=== PATIENT | female | born 1995 | race Caucasian/White ===

== ENCOUNTER 2018-12-18 08:24 | Inpatient (IN) ==
[2018-12-18] MEDS ORDERED: Ondansetron 4 MG/2 ML VIAL IVP ONE (08:37)
[2018-12-18] MEDS ORDERED: *HR* FentaNYL (PF) 100 MCG/2 ML VIAL IVP ONE (08:37)
--- NOTE | 2018-12-18 08:43 | Emergency Department Note ---
Disposition Clinical Impression: STEMI (ST elevation myocardial infarction) Qualifiers: Involved coronary artery: right coronary artery Qualified Code(s): I21.11 - ST elevation (STEMI) myocardial infarction involving right coronary artery Disposition: Admitted As Inpatient Condition: Critical Time of Disposition: 09:21 General Adult HPI - General Chief complaint: ED Shortness of Breath/Dyspnea Stated complaint: CP/MAKAYLA/DKA? Time Seen by Provider: 12/18/18 08:28 Source: patient Mode of arrival: ambulatory Limitations: no limitations Nursing Notes Reviewed: Yes Vital Signs Reviewed: Yes - History of Present Illness HPI Narrative: Ill-appearing 23-year-old female with a history of diabetes presents for evaluation of severe nausea, vomiting, abdominal cramping, and retrosternal chest pain along with shortness of breath. Symptoms began this morning upon her awakening. She states a history of DKA in the past and states that she she feels as if she might be in DKA again. She states her blood glucose levels have been reading as "high" on her home glucometer. She does state that she had recently been on oral steroids for bronchitis. Up until this morning, her blood glucose levels were relatively well-controlled on her current regimen. She denies any fever or chills. She describes diffuse abdominal cramping. The substernal chest pain is worse with inspiration. She denies any porsche hemoptysis. She denies any history of PEs or DVTs. She denies any pain or swelling of the lower extremities. She denies any recent surgical procedures or prolonged periods of immobilization. She denies any urinary symptoms. She st ates that she has had several episodes of diarrhea for the past couple of days. She describes an ongoing nonproductive cough. Onset (ago): hour(s) Location: chest, abdomen Quality: aching Consistency: Worsening Improves with: nothing Associated symptoms: Reports: cough, nausea/vomiting. Denies: fever/chills - Related Data Home Medications Medication Instructions Recorded Confirmed Dulaglutide [Trulicity] 0.75 mg SQ WE 12/18/18 12/18/18 GlipiZIDE XL (24 HR) [Glucotrol XL] 10 mg PO DAILY 12/18/18 12/18/18 Lisinopril 2.5 mg PO DAILY 12/18/18 12/18/18 Metformin HCl 1,000 mg PO BID 12/18/18 12/18/18 Pregabalin [Lyrica] 150 mg PO TID 12/18/18 12/18/18 Sertraline [Zoloft] 50 mg PO DAILY 12/18/18 12/18/18 Allergies Allergy/AdvReac Type Severity Reaction Status Date / Time No Known Allergies Allergy Verified 12/18/18 16:21 All systems ED: reviewed and negative except as stated. Review of Systems: As Per HPI Constitutional: Denies: fever, chills, weakness, weight change Eyes: Denies: eye pain, eye discharge, vision change ENT ED: Denies: ear pain, throat pain, dental pain, hearing loss, epistaxis, congestion, dysphagia Cardiovascular: Reports: as per HPI, chest pain. Denies: palpitations, dyspnea on exertion, edema, syncope Respiratory: Reports: as per HPI, cough, dyspnea. Denies: wheezes, hemoptysis, stridor Gastrointestinal: Reports: as per HPI, abdominal pain, nausea, vomiting, diarrhea. Denies: constipation, hematemesis, melena, hematochezia Genitourinary: Denies: dysuria, frequency, hematuria, discharge Musculoskeletal: Denies: back pain, neck pain, arthralgia, myalgia Integumentary: Denies: rash, abrasion, lesions Neurological: Denies: headache, weakness, numbness, paresthesias, confusion, abnormal gait, vertigo Psychiatric: Denies: anxiety, depression, suicidal thoughts, homicidal thoughts, auditory hallucinations, visual hallucinations Endocrine: Denies: fatigue Hematological/Lymphatic: Denies: easy bleeding, easy bruising Allergic/Immunologic: Denies: facial swelling, urticaria Past Medical History - Past Medical History Attestation: Yes The following information was validated with the patient. Source: patient, nursing notes reviewed Medical history: Reports: diabetes, fibromyalgia, hepatitis, other Surgical history: Reports: , other Psychiatric history: Reports: anxiety, bipolar, depression HANDMADE TILE ARTIST history: Reports: no HANDMADE TILE ARTIST history - Social History Smoking Status: Never smoker Smokeless Tobacco Status: No Alcohol use: Reports: none Drug use: Reports: none Physical Exam - General Limitations: no limitations General appearance: alert, other (Ill-appearing) - Head Head exam: atraumatic, normocephalic, normal inspection - Eye Eye exam: Present: normal appearance, PERRL, EOMI. Absent: nystagmus - ENT ENT exam: mucous membranes dry - Neck Neck exam: Present: normal inspection, full ROM - Chest Chest inspection: Present: normal inspection, symmetric chest wall rise - Respiratory Respiratory exam: Present: normal lung sounds bilaterally. Absent: respiratory distress, wheezes, stridor, accessory muscle use, prolonged expiratory phase - Cardiovascular Cardiovascular exam: Present: regular rate, normal rhythm, normal heart sounds - Abdominal Exam Abdominal exam: Present: soft, tenderness (Diffuse), normal bowel sounds. Absent: distention, guarding, rebound, rigidity Abdominal tenderness: Present: diffuse, moderate - Extremities Exam Extremities exam: Present: normal inspection, full ROM - Neurological Exam Neurological exam: Present: alert, oriented X3 - Psychiatric Psychiatric exam: Present: normal affect, normal mood - Skin Skin exam: Present: warm, dry, intact, normal color. Absent: rash, cyanosis, diaphoresis, pallor, mottled Course Course Narrative: 0846: EKG obtained and shows ST elevations in leads 2, 3, aVF, V4, V5, and 6. ST depressions noted in leads 1, aVL, and V2. EKG reviewed by Dr. Elias. STEMI alert paged at this time. Aspirin given. Awaiting further input from cardiology for additional medications. 0903: Advanced practice provider DENNY Leyva from cardiology at bedside currently. 0906: Autumn recommends administering 180 mg of Brilinta. The patient has received a 4000 unit bolus of heparin, IV push. Aspirin given. Autumn states that Dr. Fofana, agricultural commodities inspector is currently performing a heart catheterization however she will send him to the emergency department for bedside evaluation as soon as possible. Dr. Elias recommends one sublingual nitroglycerin. 0918: EKG repeated. ST elevations in 2, 3, aVF, V3, V4, V5, V6 persists. 0920: earth science laboratory technician personnel at bedside. 0923: Patient to blood and plasma laboratory assistant with blood and plasma laboratory assistant nursing staff. Vital Signs Temperature 97.7 F 12/18/18 08:30 Pulse Rate 127 12/18/18 08:30 Respiratory Rate 18 12/18/18 08:30 Blood Pressure 152/116 12/18/18 08:30 O2 Sat by Pulse Oximetry 97 12/18/18 08:30 Temperature 97.6 F 12/18/18 15:15 Pulse Rate 112 12/18/18 17:00 Respiratory Rate 14 12/18/18 17:00 Blood Pressure 151/101 12/18/18 17:00 O2 Sat by Pulse Oximetry 95 12/18/18 17:00 Oxygen Delivery Oxygen Delivery Nasal Cannula Medical Decision Making - Medical Records Medical records reviewed: Yes I reviewed the patient's medical records. - Lab Data Lab results reviewed: Yes I reviewed the patient's lab results. Result diagrams: 12/18/18 08:49 12/18/18 15:12 Lab Results 12/18/18 12/18/18 12/18/18 Range/Units 08:33 08:34 08:49 WBC 17.7 H D (4.3-11.1) K/mcL RBC 4.94 (3.82-4.97) M/mcL Hgb 14.8 (11.5-15.4) g/dL Hct 42.1 (35.3-44.9) % MCV 85.2 (83.0-100.0) fL MCH 30.0 (28.0-33.3) pg MCHC 35.2 (31.6-35.5) g/dL RDW 12.7 (11.5-14.5) % Plt Count 260 (140-400) K/mcL MPV 10.0 (9.4-12.4) fL Immature Gran % 0.6 (0-4) % Seg Neutrophils % 76.7 % Lymphocytes % 18.2 % Monocytes % 3.5 % Eosinophils % 0.8 % Basophils % 0.2 % Neutrophils # 13.6 H (1.6-8.9) K/mcL Lymphocytes # 3.2 (0.6-4.6) K/mcL Monocytes # 0.6 (0.0-1.3) K/mcL Eosinophils # 0.1 (0.0-0.6) K/mcL Basophils # 0.0 (0.0-0.2) K/mcL D-Dimer (0-500) ng/mLFEU VBG pH (7.32-7.42) pH Units VBG pCO2 (41-51) mmHg VBG pO2 (25-50) mmHg VBG HCO3 (21-27) mEq/L Sodium (136-145) mEq/L Potassium (3.5-5.1) mEq/L Chloride (98-107) mEq/L Carbon Dioxide (23-29) mEq/L BUN (6-20) mg/dL Creatinine (0.60-1.20) mg/dL Est GFR ( Amer) (> 60) Est GFR (Non-Af Amer) (> 60) BUN/Creatinine Ratio (6-26) Glucose (70-105) mg/dL POC Glucose 492 H* 512 H* (70-99) mg/dL Calculated Osmolality (280-300) Lactic Acid (0.5-2.2) mmol/L Calcium (8.6-10.3) mg/dL Phosphorus (2.7-4.5) mg/dL Magnesium (1.6-2.6) mg/dL Total Bilirubin (0.3-1.0) mg/dL AST (13-39) Units/L ALT (7-52) Units/L Alkaline Phosphatase (34-104) Units/L Troponin I (< 0.04) ng/mL Serum Total Protein (6.4-8.9) g/dL Albumin (3.5-5.7) g/dL Globulin (2.4-3.5) g/dL Albumin/Globulin Ratio (1.1-2.2) Beta-Hydroxybutyric Acd (0.02-0.27) mmol/L Serum , Qual (Negative) 12/18/18 12/18/18 12/18/18 Range/Units 08:49 08:49 08:49 WBC (4.3-11.1) K/mcL RBC (3.82-4.97) M/mcL Hgb (11.5-15.4) g/dL Hct (35.3-44.9) % MCV (83.0-100.0) fL MCH (28.0-33.3) pg MCHC (31.6-35.5) g/dL RDW (11.5-14.5) % Plt Count (140-400) K/mcL MPV (9.4-12.4) fL Immature Gran % (0-4) % Seg Neutrophils % % Lymphocytes % % Monocytes % % Eosinophils % % Basophils % % Neutrophils # (1.6-8.9) K/mcL Lymphocytes # (0.6-4.6) K/mcL Monocytes # (0.0-1.3) K/mcL Eosinophils # (0.0-0.6) K/mcL Basophils # (0.0-0.2) K/mcL D-Dimer (0-500) ng/mLFEU VBG pH (7.32-7.42) pH Units VBG pCO2 (41-51) mmHg VBG pO2 (25-50) mmHg VBG HCO3 (21-27) mEq/L Sodium 134 L (136-145) mEq/L Potassium 3.3 L (3.5-5.1) mEq/L Chloride 99 (98-107) mEq/L Carbon Dioxide 19 L (23-29) mEq/L BUN 22 H (6-20) mg/dL Creatinine 0.75 (0.60-1.20) mg/dL Est GFR ( Amer) > 60 (> 60) Est GFR (Non-Af Amer) > 60 (> 60) BUN/Creatinine Ratio 29 H (6-26) Glucose 573 H* (70-105) mg/dL POC Glucose (70-99) mg/dL Calculated Osmolality 308 H (280-300) Lactic Acid 3.7 H (0.5-2.2) mmol/L Calcium 10.2 (8.6-10.3) mg/dL Phosphorus 2.2 L (2.7-4.5) mg/dL Magnesium 1.5 L (1.6-2.6) mg/dL Total Bilirubin 0.6 (0.3-1.0) mg/dL AST 34 (13-39) Units/L ALT 13 (7-52) Units/L Alkaline Phosphatase 77 (34-104) Units/L Troponin I 1.91 H* (< 0.04) ng/mL Serum Total Protein 7.2 (6.4-8.9) g/dL Albumin 4.3 (3.5-5.7) g/dL Globulin 2.9 (2.4-3.5) g/dL Albumin/Globulin Ratio 1.5 (1.1-2.2) Beta-Hydroxybutyric Acd 1.71 H (0.02-0.27) mmol/L Serum , Qual (Negative) 12/18/18 12/18/18 12/18/18 Range/Units 08:49 08:49 09:07 WBC (4.3-11.1) K/mcL RBC (3.82-4.97) M/mcL Hgb (11.5-15.4) g/dL Hct (35.3-44.9) % MCV (83.0-100.0) fL MCH (28.0-33.3) pg MCHC (31.6-35.5) g/dL RDW (11.5-14.5) % Plt Count (140-400) K/mcL MPV (9.4-12.4) fL Immature Gran % (0-4) % Seg Neutrophils % % Lymphocytes % % Monocytes % % Eosinophils % % Basophils % % Neutrophils # (1.6-8.9) K/mcL Lymphocytes # (0.6-4.6) K/mcL Monocytes # (0.0-1.3) K/mcL Eosinophils # (0.0-0.6) K/mcL Basophils # (0.0-0.2) K/mcL D-Dimer 478 (0-500) ng/mLFEU VBG pH 7.37 (7.32-7.42) pH Units VBG pCO2 34 L (41-51) mmHg VBG pO2 74 H (25-50) mmHg VBG HCO3 20 L (21-27) mEq/L Sodium (136-145) mEq/L Potassium (3.5-5.1) mEq/L Chloride (98-107) mEq/L Carbon Dioxide (23-29) mEq/L BUN (6-20) mg/dL Creatinine (0.60-1.20) mg/dL Est GFR ( Amer) (> 60) Est GFR (Non-Af Amer) (> 60) BUN/Creatinine Ratio (6-26) Glucose (70-105) mg/dL POC Glucose (70-99) mg/dL Calculated Osmolality (280-300) Lactic Acid (0.5-2.2) mmol/L Calcium (8.6-10.3) mg/dL Phosphorus (2.7-4.5) mg/dL Magnesium (1.6-2.6) mg/dL Total Bilirubin (0.3-1.0) mg/dL AST (13-39) Units/L ALT (7-52) Units/L Alkaline Phosphatase (34-104) Units/L Troponin I (< 0.04) ng/mL Serum Total Protein (6.4-8.9) g/dL Albumin (3.5-5.7) g/dL Globulin (2.4-3.5) g/dL Albumin/Globulin Ratio (1.1-2.2) Beta-Hydroxybutyric Acd (0.02-0.27) mmol/L Serum , Qual Negative (Negative) - Radiology Data Radiology results reviewed: Yes I reviewed the patient's radiology results. - EKG Data EKG #1 EKG attestation: Yes I reviewed and interpreted this EKG. Critical Care Time Critical Care Time: Yes Total Critical Care Time: 30 Attestation: 30 minutes critical care time excluding any separately billable procedures.
[2018-12-18] MEDS ORDERED: *HR* Heparin 5,000 UNIT/ML VIAL ONE (08:52)
[2018-12-18] MEDS ORDERED: Aspirin 81 MG TAB.CHEW ONE (08:52)
[2018-12-18] MEDS ORDERED: *HR* Morphine 2 MG/ML SYRINGE ONE (08:52)
[2018-12-18] MEDS ORDERED: 0.9 % Sodium Chloride 1,000 ML ONE ×2 (08:52→09:50)
[2018-12-18] MEDS ORDERED: *HR* Ticagrelor 90 MG TABLET ONE (08:52)
--- NOTE | 2018-12-18 08:58 | Emergency Department Note ---
Disposition Clinical Impression: STEMI (ST elevation myocardial infarction) Qualifiers: Involved coronary artery: unspecified coronary artery Qualified Code(s): I21.3 - ST elevation (STEMI) myocardial infarction of unspecified site Disposition: Admitted As Inpatient Condition: Critical Referrals: NONE,PCP [Primary Care Provider] - Forms: ED Satisfaction Letter General Adult HPI - General Chief complaint: ED Shortness of Breath/Dyspnea Stated complaint: CP/MAKAYLA/DKA? Time Seen by Provider: 12/18/18 08:28 Source: patient Mode of arrival: ambulatory Limitations: no limitations Nursing Notes Reviewed: Yes Vital Signs Reviewed: Yes - History of Present Illness Location: chest, abdomen Quality: aching Improves with: nothing Associated symptoms: Reports: cough, nausea/vomiting. Denies: fever/chills - Related Data Home Medications Medication Instructions Recorded Confirmed Basaglar Smithikpen U-100 02/28/18 Gabapentin 02/28/18 HumaLOG 02/28/18 Naproxen 02/28/18 Pioglitazone [Actos] 30 mg PO 02/28/18 metFORMIN [Glucophage] 500 mg PO 02/28/18 Previous Rx's Medication Instructions Recorded Promethazine [Phenergan] 12.5 mg PO Q8HR PRN #10 tablet 02/28/18 Dicyclomine [Bentyl] 10 mg PO TID PRN #12 capsule 03/24/18 Ondansetron HCl [Zofran] 4 mg PO Q6HR PRN #12 tab 03/24/18 Morphine Immed Rel [Morphine 15 mg PO Q4HR PRN 3 Days #15 tab 04/09/18 Sulfate] Ondansetron ODT [Zofran ODT] 4 mg SL Q8HR #20 tab.rapdis 08/08/18 Allergies Allergy/AdvReac Type Severity Reaction Status Date / Time No Known Allergies Allergy Verified 04/05/17 15:40 Constitutional: Denies: fever, chills, weakness, weight change Eyes: Denies: eye pain, eye discharge, vision change ENT ED: Denies: ear pain, throat pain, dental pain, hearing loss, epistaxis, congestion, dysphagia Cardiovascular: Reports: as per HPI, chest pain. Denies: palpitations, dyspnea on exertion, edema, syncope Respiratory: Reports: as per HPI, cough, dyspnea. Denies: wheezes, hemoptysis, stridor Gastrointestinal: Reports: as per HPI, abdominal pain, nausea, vomiting, diarrhea. Denies: constipation, hematemesis, melena, hematochezia Genitourinary: Denies: dysuria, frequency, hematuria, discharge Musculoskeletal: Denies: back pain, neck pain, arthralgia, myalgia Integumentary: Denies: rash, abrasion, lesions Neurological: Denies: headache, weakness, numbness, paresthesias, confusion, abnormal gait, vertigo Psychiatric: Denies: anxiety, depression, suicidal thoughts, homicidal thoughts, auditory hallucinations, visual hallucinations Endocrine: Denies: fatigue Hematological/Lymphatic: Denies: easy bleeding, easy bruising Allergic/Immunologic: Denies: facial swelling, urticaria Past Medical History - Past Medical History Medical history: Reports: diabetes, fibromyalgia, hepatitis, other Surgical history: Reports: , other Psychiatric history: Reports: anxiety, bipolar, depression PURCHASING BUYER history: Reports: no PURCHASING BUYER history - Social History Smoking Status: Never smoker Smokeless Tobacco Status: No Alcohol use: Reports: none Drug use: Reports: none Physical Exam - General Limitations: no limitations General appearance: alert, other (Ill-appearing) Course Vital Signs Temperature 97.7 F 12/18/18 08:30 Pulse Rate 127 12/18/18 08:30 Respiratory Rate 18 12/18/18 08:30 Blood Pressure 152/116 12/18/18 08:30 O2 Sat by Pulse Oximetry 97 12/18/18 08:30 Temperature 97.7 F 12/18/18 08:30 Pulse Rate 110 12/18/18 09:15 Respiratory Rate 16 12/18/18 09:15 Blood Pressure 136/95 12/18/18 09:15 O2 Sat by Pulse Oximetry 99 12/18/18 09:15 Oxygen Delivery Oxygen Delivery Nasal Cannula Medical Decision Making - [facility] Narrative Medical decision making narrative: 0906 hrs. cardiology is in the emergency department evaluating the patient. We have held on her heparin until we could see her chest x-ray to make sure she did not have a wide mediastinum. She does not. We will start the heparin nitroglycerin and the determine if cardiology wants polenta her other m edications. Patient over to the Director Of Academic Support then to ICU for admission. Chest X-Ray 12/18/18 08:35 IMPRESSION: No acute findings in the chest. D/ / Martin Perales MD / Martin Perales MD Interpreting Provider: Martin Perales MD 0915 hours cardiology wanted to start her on blunted. She did have a run of what looks like V. tach was about 10-15 beats. No more that. Her pain is a little improved but still there. They are to take her to the Director Of Academic Support as soon as the cardiologists finished with the current catheter on. Patient's in agreement with plan as is her family. 0925 hrs.: Due to the second EKG and the patient still shows STEMI. She is having less pain now we did do one nitroglycerin on her still waiting on Director Of Academic Support. And then she will go for that. 0930 hrs.: Patient's in Director Of Academic Support at this time. We will also touch base with medicine since she does have DKA and will be admitted most likely to medicine with cardiology consult cardiology with medicine consult. Impression #1 is DKA with history of same. #2 is inferior wall STEMI. - Lab Data Result diagrams: 12/18/18 08:49 12/18/18 08:49 Lab Results 12/18/18 12/18/18 12/18/18 Range/Units 08:49 08:49 08:49 WBC 17.7 H D (4.3-11.1) K/mcL RBC 4.94 (3.82-4.97) M/mcL Hgb 14.8 (11.5-15.4) g/dL Hct 42.1 (35.3-44.9) % MCV 85.2 (83.0-100.0) fL MCH 30.0 (28.0-33.3) pg MCHC 35.2 (31.6-35.5) g/dL RDW 12.7 (11.5-14.5) % Plt Count 260 (140-400) K/mcL MPV 10.0 (9.4-12.4) fL Immature Gran % 0.6 (0-4) % Seg Neutrophils % 76.7 % Lymphocytes % 18.2 % Monocytes % 3.5 % Eosinophils % 0.8 % Basophils % 0.2 % Neutrophils # 13.6 H (1.6-8.9) K/mcL Lymphocytes # 3.2 (0.6-4.6) K/mcL Monocytes # 0.6 (0.0-1.3) K/mcL Eosinophils # 0.1 (0.0-0.6) K/mcL Basophils # 0.0 (0.0-0.2) K/mcL D-Dimer (0-500) ng/mLFEU VBG pH (7.32-7.42) pH Units VBG pCO2 (41-51) mmHg VBG pO2 (25-50) mmHg VBG HCO3 (21-27) mEq/L Sodium 134 L (136-145) mEq/L Potassium 3.3 L (3.5-5.1) mEq/L Chloride 99 (98-107) mEq/L Carbon Dioxide 19 L (23-29) mEq/L BUN 22 H (6-20) mg/dL Creatinine 0.75 (0.60-1.20) mg/dL Est GFR ( Amer) > 60 (> 60) Est GFR (Non-Af Amer) > 60 (> 60) BUN/Creatinine Ratio 29 H (6-26) Glucose 573 H* (70-105) mg/dL Calculated Osmolality 308 H (280-300) Lactic Acid (0.5-2.2) mmol/L Calcium 10.2 (8.6-10.3) mg/dL Phosphorus 2.2 L (2.7-4.5) mg/dL Magnesium 1.5 L (1.6-2.6) mg/dL Total Bilirubin 0.6 (0.3-1.0) mg/dL AST 34 (13-39) Units/L ALT 13 (7-52) Units/L Alkaline Phosphatase 77 (34-104) Units/L Troponin I 1.91 H* (< 0.04) ng/mL Serum Total Protein 7.2 (6.4-8.9) g/dL Albumin 4.3 (3.5-5.7) g/dL Globulin 2.9 (2.4-3.5) g/dL Albumin/Globulin Ratio 1.5 (1.1-2.2) Beta-Hydroxybutyric Acd 1.71 H (0.02-0.27) mmol/L Serum , Qual (Negative) 0412/18/18 12/18/18 Range/Units 08:49 08:49 08:49 WBC (4.3-11.1) K/mcL RBC (3.82-4.97) M/mcL Hgb (11.5-15.4) g/dL Hct (35.3-44.9) % MCV (83.0-100.0) fL MCH (28.0-33.3) pg MCHC (31.6-35.5) g/dL RDW (11.5-14.5) % Plt Count (140-400) K/mcL MPV (9.4-12.4) fL Immature Gran % (0-4) % Seg Neutrophils % % Lymphocytes % % Monocytes % % Eosinophils % % Basophils % % Neutrophils # (1.6-8.9) K/mcL Lymphocytes # (0.6-4.6) K/mcL Monocytes # (0.0-1.3) K/mcL Eosinophils # (0.0-0.6) K/mcL Basophils # (0.0-0.2) K/mcL D-Dimer 478 (0-500) ng/mLFEU VBG pH (7.32-7.42) pH Units VBG pCO2 (41-51) mmHg VBG pO2 (25-50) mmHg VBG HCO3 (21-27) mEq/L Sodium (136-145) mEq/L Potassium (3.5-5.1) mEq/L Chloride (98-107) mEq/L Carbon Dioxide (23-29) mEq/L BUN (6-20) mg/dL Creatinine (0.60-1.20) mg/dL Est GFR ( Amer) (> 60) Est GFR (Non-Af Amer) (> 60) BUN/Creatinine Ratio (6-26) Glucose (70-105) mg/dL Calculated Osmolality (280-300) Lactic Acid 3.7 H (0.5-2.2) mmol/L Calcium (8.6-10.3) mg/dL Phosphorus (2.7-4.5) mg/dL Magnesium (1.6-2.6) mg/dL Total Bilirubin (0.3-1.0) mg/dL AST (13-39) Units/L ALT (7-52) Units/L Alkaline Phosphatase (34-104) Units/L Troponin I (< 0.04) ng/mL Serum Total Protein (6.4-8.9) g/dL Albumin (3.5-5.7) g/dL Globulin (2.4-3.5) g/dL Albumin/Globulin Ratio (1.1-2.2) Beta-Hydroxybutyric Acd (0.02-0.27) mmol/L Serum , Qual Negative (Negative) 12/18/18 Range/Units 09:07 WBC (4.3-11.1) K/mcL RBC (3.82-4.97) M/mcL Hgb (11.5-15.4) g/dL Hct (35.3-44.9) % MCV (83.0-100.0) fL MCH (28.0-33.3) pg MCHC (31.6-35.5) g/dL RDW (11.5-14.5) % Plt Count (140-400) K/mcL MPV (9.4-12.4) fL Immature Gran % (0-4) % Seg Neutrophils % % Lymphocytes % % Monocytes % % Eosinophils % % Basophils % % Neutrophils # (1.6-8.9) K/mcL Lymphocytes # (0.6-4.6) K/mcL Monocytes # (0.0-1.3) K/mcL Eosinophils # (0.0-0.6) K/mcL Basophils # (0.0-0.2) K/mcL D-Dimer (0-500) ng/mLFEU VBG pH 7.37 (7.32-7.42) pH Units VBG pCO2 34 L (41-51) mmHg VBG pO2 74 H (25-50) mmHg VBG HCO3 20 L (21-27) mEq/L Sodium (136-145) mEq/L Potassium (3.5-5.1) mEq/L Chloride (98-107) mEq/L Carbon Dioxide (23-29) mEq/L BUN (6-20) mg/dL Creatinine (0.60-1.20) mg/dL Est GFR ( Amer) (> 60) Est GFR (Non-Af Amer) (> 60) BUN/Creatinine Ratio (6-26) Glucose (70-105) mg/dL Calculated Osmolality (280-300) Lactic Acid (0.5-2.2) mmol/L Calcium (8.6-10.3) mg/dL Phosphorus (2.7-4.5) mg/dL Magnesium (1.6-2.6) mg/dL Total Bilirubin (0.3-1.0) mg/dL AST (13-39) Units/L ALT (7-52) Units/L Alkaline Phosphatase (34-104) Units/L Troponin I (< 0.04) ng/mL Serum Total Protein (6.4-8.9) g/dL Albumin (3.5-5.7) g/dL Globulin (2.4-3.5) g/dL Albumin/Globulin Ratio (1.1-2.2) Beta-Hydroxybutyric Acd (0.02-0.27) mmol/L Serum , Qual (Negative) Critical Care Time Critical Care Time: Yes Total Critical Care Time: 30 Attestation: Excluding any separately billable procedures. Attestation Statement - Attestation Attestation: This documentation is done with the assistance of Dragon dictation. Despite efforts made to ensure accuracy, there may be inaccuracies in mainframe consultant or spelling and typographical errors. For this encounter, I have reviewed the DRUG ABUSE SOCIAL WORKER or PA documentation, treatment plan, and medical decision making; and I have had face to face time with this patient. Patient seen and evaluated by Salazar Peña and myself, I agree with his evaluation and management plan, patient has a history of diabetes came in with elevated blood sugars been also having chest pain that started sometime she says this mo rning she thinks maybe around 6 AM but then her story changes. Said sharp pain and nausea she was given some for nausea not better an EKG which shows an inferior STEMI. Had no cardiac history in the past her mom [id number] with her and she is not aware of anyone else having heart disease a young age. No history of PE. She was called as a STEMI alert. IVs placed and a give her some for pain and also started on heparin and then we will see what cardiology wants us for his other meds.
[2018-12-18 09:06] LABS: Basophils % 0.2 %; Eosinophils % 0.8 %; Hematocrit 42.1 % (35.3-44.9); Hemoglobin 14.8 g/dL (11.5-15.4); Immature Granulocytes % 0.6 % (0-4); Lymphocytes # 3.2 K/mcL (0.6-4.6); Lymphocytes % 18.2 %; Mean Corpuscular HGB Conc 35.2 g/dL (31.6-35.5); Mean Corpuscular Volume 85.2 fL (83.0-100.0); Monocytes # 0.6 K/mcL (0.0-1.3); Monocytes % 3.5 %; Neutrophils # 13.6 K/mcL (1.6-8.9); Platelet Count 260 K/mcL (140-400); Red Blood Count 4.94 M/mcL (3.82-4.97); Red Cell Distribution Width 12.7 % (11.5-14.5); Segmented Neutrophils % 76.7 %
[2018-12-18] MEDS: Aspirin 81 MG TAB.CHEW PO ONE ×2 (09:09→12:28)
[2018-12-18] MEDS: 0.9 % Sodium Chloride 1,000 ML IVC SCH ×4 (09:09→19:15)
[2018-12-18 09:10] LABS: VBG HCO3 20 mEq/L (21-27); VBG PCO2 34 mmHg (41-51); VBG PH 7.37 pH Units (7.32-7.42); VBG PO2 74 mmHg (25-50)
[2018-12-18] MEDS: *HR* Ticagrelor 90 MG TABLET PO ONE ×2 (09:10→12:29)
[2018-12-18] MEDS: *HR* Morphine 2 MG/ML SYRINGE IVP ONE ×2 (09:10→12:27)
[2018-12-18] MEDS: *HR* Heparin 5,000 UNIT/ML VIAL IVP ONE ×2 (09:11→12:27)
[2018-12-18 09:13] LABS: Eosinophils # 0.1 K/mcL (0.0-0.6)
[2018-12-18] MEDS ORDERED: Nitroglycerin 0.4 MG TAB.SUBL SL ONE (09:18)
[2018-12-18 09:28] LABS: Alanine Aminotransferase 13 Units/L (7-52); Albumin 4.3 g/dL (3.5-5.7); Albumin/Globulin Ratio 1.5 (1.1-2.2); Alkaline Phosphatase 77 Units/L (34-104); Aspartate Amino Transferase 34 Units/L (13-39); BUN/Creatinine Ratio 29 (6-26); Bilirubin,Total 0.6 mg/dL (0.3-1.0); Blood Urea Nitrogen 22 mg/dL (6-20); Calcium 10.2 mg/dL (8.6-10.3); Carbon Dioxide 19 mEq/L (23-29); Chloride 99 mEq/L (98-107); Globulin 2.9 g/dL (2.4-3.5); Magnesium 1.5 mg/dL (1.6-2.6); Osmolality,Calculated 308 (280-300); Phosphorous 2.2 mg/dL (2.7-4.5); Potassium 3.3 mEq/L (3.5-5.1); Sodium 134 mEq/L (136-145); Total Protein 7.2 g/dL (6.4-8.9); Troponin I 1.91 ng/mL (< 0.04); eGFR For Non-African Americans > 60 (> 60)
[2018-12-18] MEDS ORDERED: *HR* FentaNYL (PF) 100 MCG/2 ML VIAL ONE (09:30)
[2018-12-18] MEDS ORDERED: *HR* Midazolam HCl 2 MG/2 ML VIAL ONE (09:30)
[2018-12-18 09:31] LABS: Glucose 573 mg/dL (70-105)
[2018-12-18] MEDS ORDERED: *HR* Morphine 10 MG/ML VIAL ONE (09:31)
[2018-12-18] MEDS ORDERED: ISOVUE-370 200 ML INFUS..BTL ONE (09:32)
[2018-12-18] MEDS ORDERED: Heparin 1,000 UNITS/500 mL 500 ML ONE (09:32)
[2018-12-18] MEDS ORDERED: *HR* Amiodarone 150 MG/3 ML VIAL IVPB ONE (09:43)
[2018-12-18] MEDS ORDERED: *HR* Atropine Sulfate 1 MG/10 ML SYRINGE ONE ×2 (09:43→12:40)
[2018-12-18] MEDS ORDERED: Amiodarone Premix 360 MG/200 ML BAG IVC ONE ×2 (09:44→10:20)
[2018-12-18] MEDS ORDERED: Tirofiban 12.5 MG/250ML 12.5 MG/250 ML BAG ONE (09:46)
--- NOTE | 2018-12-18 10:27 | Cardiology Consult Note ---
<Autumn Peguero - Last Filed: 12/18/18 10:22> Date of Encounter: 12/18/18 Time of Encounter: 09:00 Assessment and Plan (1) STEMI (ST elevation myocardial infarction) Current Visit: Yes Status: Acute Per cardiology: -Acute inferior STEMI noted on ECG. -Presented with chest pain at rest, current 10/10 chest pain. -Denies IV drug, or cocaine abuse. Admits to marijuana use. -Serum negative. -Plan for emergent C. Qualifiers: Involved coronary artery: right coronary artery Qualified Code(s): I21.11 - ST elevation (STEMI) myocardial infarction involving right coronary artery (2) DM type 1 (diabetes mellitus, type 1) Current Visit: Yes Status: Chronic Per cardiology: -Known DM type I. -Blood sugars elevated in the 500s on admission. -WIll consult hospitalist for assistance with diabetes management. Qualifiers: Diabetes mellitus complication status: with unspecified complications Qualified Code(s): E10.8 - Type 1 diabetes mellitus with unspecified complications Discussion w patient/family: The assessment and plan as outlined above was discussed with the patient who expressed understanding and agreement. All questions were answered. Thank you for involving us in the care of your patient. Please call with any questions. Discussed and reviewed with . History of Present Illness Consult date: 12/18/18 Requesting physician: Salazar Peña Consult reason: STEMI Chief complaint: Chest pain History of present illness: Ms. Meyers is a 23 year old female with a relevant past medical history of DMI, DKA, depression, hepatits C, diabetic neuropathy, gastroporesis, who presented to [facility] with complaints of chest pain. Patient initially thought symptoms were similar to her previous DKA episodes. Patient states chest pain woke her up from sleeping. States shortness of breath. Reports current 10/10 chest pain. Past Med Surg Social Fam HX - Past Medical History Attestation: Yes The following information was validated with the patient. Source: patient, old records reviewed Medical history: diabetes, fibromyalgia, hepatitis, other Additional medical history: neuropathy Psychiatric history: anxiety, bipolar, depression - Past Surgical History Surgical History: , other Additional surgical history: T&A - Social History Smoking Status: Never smoker Smokeless Tobacco Status: No Alcohol use: none Drug use: none Medications and Allergies Lisa Connors U-100 02/28/18 [History] Gabapentin 02/28/18 [History] HumaLOG 02/28/18 [History] Naproxen 02/28/18 [History] Pioglitazone [Actos] 30 mg PO 02/28/18 [History] Promethazine [Phenergan] 12.5 mg PO Q8HR PRN #10 tablet 02/28/18 [Rx] metFORMIN [Glucophage] 500 mg PO 02/28/18 [History] Dicyclomine [Bentyl] 10 mg PO TID PRN #12 capsule 03/24/18 [Rx] Ondansetron HCl [Zofran] 4 mg PO Q6HR PRN #12 tab 03/24/18 [Rx] RX: Morphine Immed Rel [Morphine Sulfate] 15 mg PO Q4HR PRN 3 Days #15 tab 04/09/18 [Rx] Ondansetron ODT [Zofran ODT] 4 mg SL Q8HR #20 tab.rapdis 08/08/18 [Rx] Allergy/AdvReac Type Severity Reaction Status Date / Time No Known Allergies Allergy Verified 04/05/17 15:40 All Systems Review: The remainder of the systems were reviewed and are negative - Cardiovascular Cardiovascular: as per HPI, chest pain at rest, dyspnea at rest, dyspnea on exertion Physical Examination Vital Signs, Last 4 Hours Temp Pulse Resp BP Pulse Ox 12/18/18 09:15 110 16 136/95 99 12/18/18 09:05 112 18 133/90 97 12/18/18 08:30 97.7 F 127 18 152/116 97 General: Conversant, Other (Acute distress noted. ) HEENT: Atraumatic, Normocephaly, Mucus Membranes Moist Neck: No JVD, Normal carotid pulses Cardiac: Reg Rate and Rhythm, Normal S1 and S2, No Murmur Lungs: Other (Refused respiratory assessment. ) Neuro: Alert and responsive, No focal deficits noted Abdomen: Soft, Non-Tender Skin: No rashes noted on visualized skin Musculoskeletal: No Chest Wall Tenderness Extremities: No Clubbing, No Cyanosis, No Edema, Normal Pulses Results 12/18/18 08:49 12/18/18 08:49 Lab Results Impressions Chest X-Ray 12/18/18 08:35 IMPRESSION: No acute findings in the chest. D/ / Martin Perales MD / Martin Perales MD Interpreting Provider: Martin Perales MD Active Medications Sodium Chloride (0.9 % Sodium Chloride) 1,000 mls @ 999 mls/hr IVC .Q1H1M ILEANA Stop: 12/18/18 10:45 Last Admin: 12/18/18 09:09 Dose: 999 mls/hr Amiodarone HCl/Dextrose (Amiodarone Drip Premix 360mg/200ml) 360 mg in 200 mls @ 33.333 mls/hr IVC ONCE ONE Stop: 12/18/18 16:19 Amiodarone HCl/Dextrose (Amiodarone Drip Premix 360mg/200ml) 360 mg in 200 mls @ 16.667 mls/hr IVC CONT ILEANA Stop: 06/19/19 10:31 Laboratory Tests 12/18/18 12/18/18 08:49 08:49 WBC 17.7 H D Hgb 14.8 Creatinine 0.75 Troponin I 1.91 H* - Imaging and Cardiology Chest Xray: report reviewed Echo: pending Cardiac cath: pending - EKG Interpretation EKG results cardiology: personally reviewed (ECG with acute inferior STEMI) Consult Discharge Plan - Plan Referrals: NONE,PCP [Primary Care Provider] - <Taylor Fofana - Last Filed: 12/18/18 10:36> Date of Encounter: 12/18/18 - Attending Attestation I have personally performed a face to face evaluation on this patient. I have reviewed and agree with the care plan. History and Exam by me shows: Inferior STEMI with severe chest pain s/p LHC and PCI of the RCA, moderate disease in the LAD 60%, optimize medical management. Assessment and Plan Discussion w patient/family: The assessment and plan as outlined above was discussed with the patient and/or family members who expressed understanding and agreement. All questions were answered. Thank you for involving us in the care of your patient. Please call with any questions. History of Present Illness History of present illness: Ms. Meyers is a 23 year old female All Systems Review: The remainder of the systems were reviewed and are negative Physical Examination Vital Signs, Last 4 Hours Temp Pulse Resp BP Pulse Ox 12/18/18 09:15 110 16 136/95 99 12/18/18 09:05 112 18 133/90 97 12/18/18 08:30 97.7 F 127 18 152/116 97 Results 12/18/18 08:49 12/18/18 08:49 Lab Results 12/18/18 12/18/18 12/18/18 08:49 08:49 08:49 WBC 17.7 H D Hgb 14.8 Hct 42.1 Plt Count 260 D-Dimer 478 Sodium 134 L Potassium 3.3 L Chloride 99 Carbon Dioxide 19 L BUN 22 H Creatinine 0.75 Glucose 573 H* Calcium 10.2 Magnesium 1.5 L Total Bilirubin 0.6 AST 34 ALT 13 Alkaline Phosphatase 77 Troponin I 1.91 H*
[2018-12-18] MEDS: Amiodarone Premix 360 MG/200 ML BAG IVC SCH ×2 (10:30→15:33)
[2018-12-18] MEDS ORDERED: Tirofiban 12.5 MG/250ML 12.5 MG/250 ML BAG IVC SCH (10:45)
--- NOTE | 2018-12-18 10:51 | Invasive Diagnostic Lab Proc ---
Name: Sky Meyers Date of Study: 12/18/2018 Date: 1995 Ht: 64.2in Medical Record#: [id number] Age: 23 Wt: 103.62lb Gender: Female BSA: 1.48 Order #: [id number] BMI: 17.69 Physicians Procedure Physician: Taylor Fofana MD Referring MD: Referring MD: Staff Name Position Time In Oracio Quinteros RN Monitor 09:29 AM Burton Diaz RN Safety Coordinator 09:29 AM Rony Avina RN Safety Coordinator 09:29 AM Indications Indication STEMI Procedures Performed Procedure PRQ CARD LLUVIA STENT W/ANGIO 1 VSL CORONARY ARTERY ANGIO S&I Pre-Procedure Checklist Pt not NPO for procedure and MD aware. Plan of Care Patient will tolerate the procedure without complications. Adequate level of comfort will be maintained. Hemodynamics will remain stable Patient will recover from procedure without complications. Respiratory function will be maintained. Cardiac rhythm will remain stable. Patient temperature will be maintained. Patient and/or family have verbalized understanding of the procedure. Patient Education Allergies No Known Allergies NKA Vital Signs Time BP (mmHg) HR (bpm) O2 Sat. RR (bpm) LOC 09:31 AM / % 5 = Fully awake and oriented or at pre-proc level 09:31 AM / % 4 = Oriented but drowsy 09:35 AM / % 3 = Answers simple questions/follows commands 09:28 AM 137 / 90 % 09:33 AM 143 / 100 113 100 % 16 09:36 AM 138 / 97 112 100 % 14 09:38 AM 132 / 85 112 100 % 20 09:43 AM 125 / 92 111 100 % 23 09:48 AM 128 / 86 92 100 % 27 09:53 AM 122 / 89 101 100 % 26 09:53 AM 118 / 87 100 100 % 19 09:58 AM 111 / 76 101 100 % 16 10:03 AM 108 / 78 100 100 % 20 10:08 AM 116 / 82 107 % 31 10:13 AM 132 / 87 105 % 15 10:18 AM 142 / 86 110 % 19 Procedural Medications Time Medication Dose Units Method Given By 09:31 AM Oxygen 2 L/min nasal cannula Rony Avina RN 09:31 AM Versed 1 mg Intravenous Rony Avina RN 09:31 AM Fentanyl 50 mcg Intravenous Rony Avina RN 09:33 AM Morphine 1 mg Intravenous Rony Avina RN 09:37 AM Lidocaine 2% 10 ml Subcutaneous Taylor Fofana MD 09:44 AM Amiodarone 150 mg Intravenous Rony Avina RN 09:44 AM Amiodarone 33.3 ml/hr Intravenous Rony Avina RN 09:46 AM Aggrastat Bolus: 25 ml Intravenous Rony Avina RN 09:47 AM Aggrastat 12.5mg/250ml 9 ml/hr Intravenous Rony Avina RN 09:50 AM Heparin 2000 units Intravenous Burton Diaz RN ASA Classification: CLASS II- Mild systemic disease (i.e. well-controlled diabetes, hypertension, asthma, cigarette smoking) Sourav Score Preprocedure Postprocedure Activity 2- Moves 4 extremities sustained head lift Activity 2- Moves 4 extremities sustained head lift Circulation 2- SBP +/= 20 points of pre-anesthetic level Circulation 2- SBP +/= 20 points of pre-anesthetic level Consciousness 2- Awake and alert oriented x 3 Consciousness 2- Awake and alert oriented x 3 O2 Saturation 2- Able to maintain O2 satruation of 92% on room air O2 Saturation 2- Able to maintain O2 satruation of 92% on room air Respiratory 2- Able to deep breathe and cough well Respiratory 2- Able to deep breathe and cough well Total Score 10 Total Score 10 Contrast Agent: Isovue Diagnostic Contrast: 100 ml Total Contrast: 100 ml Fluoro Dose: 16 mGy Activated Clotting Time Time Seconds to Clot 09:50 AM 173 10:19 AM 227 Procedure Log Time Note Enter By 09:26 AM Pt arrived to slab puller 2 at 09:26 cedwards 09:28 AM Vitals capture started with the following parameters, Patient=Adult, Interval=5 min, Initial Vcqwvmga=252 mmHg, Deflation Rate=5 mmHg, Cuff placed on Right Arm 09:28 AM PRYJ=345/90 mmhg 09:29 AM Patient charges- Angio tray pack, Navilyst 3mm J, Pulse Oximetry and ACIST tubing and transducer cedwards 09:29 AM Oracio Quinteros RN Position: Monitor Time in: :29 cedwards 09:29 AM Burton Diaz RN Position: Safety Coordinator Time in: :29 cedwards 09:29 AM Rony Avina RN Position: Safety Coordinator Time in: : cedwards 09:30 AM Case Start 09:30 AM CathStat 09:30 AM Hair removed from procedure site in procedure lab using clippers. Bilateral groin prepped with Chloraprep by Burton Diaz RN, then patient was draped. Skin intact. cedwards 09:30 AM Physician arrived :30 cedwards 09:30 AM ASA Class CLASS II- Mild systemic disease (i.e. well-controlled diabetes, hypertension, asthma, cigarette smoking) cedwards 09:30 AM Meet and greet completed cedwards :30 AM Sign in performed according to hospital policy. Informed consent was obtained. ced:30 AM Procedure start : ced:31 AM Time: 30 Patient comfortable and pain free: Yes ced:31 AM Time: LOC: 5 = Fully awake and oriented or at pre-proc level ced: AM Time: : Oxygen on at 2 L/min per nasal cannula by Rony Avina RN cedwards :31 AM Time: :31 Versed 1 mg Intravenous Given by Rony Avina RN cedwards :31 AM Time: :31 Fentanyl 50 mcg Intravenous Given by Rony Avina RN cedwards :32 AM Recorded ECG: UR=567 Condition=Condition 1 09:33 AM NN=479 bpm, DGLP=419/100 mmhg, AfX8=036.0 %, Resp=16 B/min 09:33 AM Time: :33 Morphine 1 mg Intravenous Given by Rony Avina RN cedwards 09:34 AM Chest Pain 10 out of 10 cedwards 09:35 AM Recorded ECG: SR=635 Condition=Condition 1 09:35 AM Recorded Pressure: Ao, CI=240, Condition=Condition 1 (Aorta) Ao 218/217/217 09:35 AM Time: :31 Patient comfortable and pain free: No cedwards 09:35 AM Time: LOC: 4 = Oriented but drowsy cedwards 09:35 AM Clinical Presentation: STEMI or equivalent cedwards 09:36 AM NIBP STAT measurement started. 09:36 AM OT=077 bpm, BRGL=861/97 mmhg, YyY6=207.0 %, Resp=14 B/min, EtCO2=20 mmHg 09:36 AM Time out was performed according to hospital policy. Conscious sedation and anesthesia was achieved (see medication log with in this report above) cedwards 09:36 AM Critical cardiac patient with acute DC was brought emergently to the cardiac photo lab manager for immediate coronary angiography and intervention if clinically indicated. cedwards 09:37 AM Time: 09:37 10 ml Lidocaine 2% to right groin Subcutaneous Given by Taylor Fofana MD cedwards 09:38 AM WK=372 bpm, VCHE=106/85 mmhg, YoG0=826.0 %, Resp=20 B/min 09:38 AM Pressure channel 3 zeroed. 09:38 AM Micro-Introducer Kit utilized for sheath placement cedwards 09:39 AM Access obtained by percutaneous puncture. 6Fr 10cm Terumo Jupiter sheath placed in right Femoral artery. [id number] cedwards 09:40 AM 0.035 145cm Navilyst 3mmJ wire [id number] cedwards 09:41 AM 5Fr FR 4 catheter inserted over the wire [facility] cedwards 09:41 AM Recorded Pressure: Ao, QQ=113, Condition=Condition 1 (Aorta) Ao 105/93/99 09:42 AM RCA angiography performed in multiple views. cedwards 09:42 AM Lesion found in Proximal RCA. Pre Stenosis: 100 Pre NATY Flow: 0: No Flow/No perfusion cedwards 09:43 AM Catheter removed cedwards 09:43 AM 5Fr FL 4 catheter inserted over the wire [facility] cedwards 09:43 AM LC=415 bpm, EUFU=563/92 mmhg, OgG0=293.0 %, Resp=23 B/min 09:43 AM LCA angiography performed in multiple views. ced 09:44 AM Time: 09:44 Amiodarone 150 mg Intravenous Given by Rony Avina RN ced 09:45 AM Time: 09:44 Amiodarone 33.3 ml/hr Intravenous Given by Rony Avina RN Plasencia pump cedwards 09:45 AM Catheter removed cedwards 09:46 AM 6Fr JR 4 Runway guide catheter was used to cannulate the PCI vessel successfully. reused? No cedwards 09:46 AM .014 BMW Kirby 190cm guide wire across target lesion- successful. reused? No ced 09:47 AM Time: 09:46 Aggrastat Bolus: 25 ml Intravenous Given by Rony Avina RN Plasencia pump cedwards 09:47 AM Time: 09:47 Aggrastat 12.5mg/250ml 9 ml/hr Intravenous Given by Rony Avina RN Plasencia pump cedwards 09:48 AM Recorded Pressure: Ao, HR=77, Condition=Condition 1 (Aorta) Ao 109/73/91 09:48 AM HR=92 bpm, YCXW=376/86 mmhg, HxD8=970.0 %, Resp=27 B/min 09:49 AM Defibrillated at 300 Joules joules cedwards 09:49 AM Inflation device was opened. cedwards 09:50 AM At 09:50 the ACT was 173 seconds. cedwards 09:50 AM Time: 09:50 Heparin 2000 units Intravenous Given by Burton Diaz RN cedwards 09:51 AM Time: 09:35LOC: 3 = Answers simple questions/follows commands cedwards 09:51 AM Time: 09:35 Patient comfortable and pain free: No cedwards 09:52 AM NIBP STAT measurement started. 09:52 AM Balloon inflated @ 6 basia for 5 seconds cedwards 09:52 AM 2.0 mm x 12 mm Emerge Monorail balloon across target lesion- successful. reused? No cedwards 09:53 AM GP=410 bpm, GGNH=312/89 mmhg, DcO7=759.0 %, Resp=26 B/min 09:53 AM Balloon inflated @ 6 basia for 8 seconds cedwards 09:53 AM VE=472 bpm, ZEIS=816/87 mmhg, OpI8=712 %, Resp=19 B/min 09:54 AM Balloon catheter removed intact. cedwards 09:58 AM MC=452 bpm, LZKV=603/76 mmhg, XoD8=832.0 %, Resp=16 B/min 09:58 AM Pronto V4 5.5 Fr thrombectomy pass # 1 for 18 ml total fluid. cedwards 10:00 AM 3.5mm x 32mm Synergy drug-eluting stent across target lesion- successful Lot #[id number] cedwards 10:01 AM Recorded Pressure: Ao, UB=132, Condition=Condition 1 (Aorta) Ao 80/73/77 10:02 AM Stent deployed @ 9 basia for 10 seconds cedwards 10:03 AM Stent balloon reinflated @ 11 basia for 10 seconds cedwards 10:03 AM ER=959 bpm, NJVI=789/78 mmhg, WiI4=907.0 %, Resp=20 B/min 10:04 AM Stent delivery system removed intact. cedwards 10:04 AM 3.5 mm x 20mm NC Emerge balloon across target lesion- successful. reused? No cedwards 10:05 AM Balloon inflated @ 12 basia for 7 seconds cedwards 10:05 AM Balloon inflated @ 18 basia for 13 seconds cedwards 10:06 AM Balloon inflated @ 19 basia for 10 seconds cedwards 10:06 AM Balloon inflated @ 18 basia for 8 seconds cedwards 10:07 AM Balloon inflated @ 20 basia for 10 seconds cedwards 10:07 AM Balloon catheter removed intact. cedwards 10:08 AM RD=033 bpm, ZIUR=797/82 mmhg, Resp=31 B/min 10:08 AM 4.0 mm x 12mm NC Emerge balloon across target lesion- successful. reused? No cedwards 10:09 AM Balloon inflated @ 16 basia for 8 seconds cedwards 10:10 AM Balloon inflated @ 16 basia for 7 seconds cedwards 10:10 AM Balloon inflated @ 17 basia for 10 seconds cedwards 10:11 AM Balloon catheter removed intact. cedwards 10:11 AM Guide wire removed intact. cedwards 10:11 AM Recorded Pressure: Ao, YU=416, Condition=Condition 1 (Aorta) Ao 104/82/93 10:12 AM O2 Sat 98% per portable finger pulse ox cedwards 10:13 AM Recorded Pressure: LV, FI=284, Condition=Condition 1 (Left Ventricle) LV 115/7/9 10:13 AM RV=957 bpm, FWZQ=854/87 mmhg, Resp=15 B/min 10:14 AM Recorded Pressure: LV, Ao, VF=836, Condition=Condition 1 (Left Ventricle) LV 138/-14/19, (Aorta) Ao 131/83/104 10:15 AM Guide catheter removed intact. cedwards 10:15 AM 5Fr Pigtail catheter inserted over the wire [facility] cedwards 10:15 AM Catheter crossed the aortic valve and was selectively placed in the left ventricle. Pressures recorded on pullback for left heart catheterization. cedwards 10:15 AM Bolus angiogram of left Ventricle complete: 8 mls cedwards 10:15 AM Catheter removed cedwards 10:18 AM Procedure completed at 10:18 12/18/2018 cedwards 10:18 AM SX=021 bpm, UPVW=479/86 mmhg, Resp=19 B/min 10:19 AM Coronary Dominance: right cedwards 10:19 AM At 10:19 the ACT was 227 seconds. cedwards 10:19 AM Did you address NATY flow and Dominance? Yes cedwards 10:20 AM Sign out completed: Radiation Dose 189.13 mGy, 15.8 Gy/cm2 Fluoro Time: 10.8 Isovue 370 - 200ml contrast 100 ml given by Taylor Fofana MD. Complications: None. The patient was discharged out of the photo lab manager in stable condition. Sedation minutes 47. Cardiac Rehab Consult needed: Yes. Confirmed administered medications: Yes cedwards 10:20 AM Isovue 370 - 200ml,1 Bottle(s) used. cedwards 10:20 AM Sheath left in place to be pulled on floor/holding areaV+Pad cedwards 10:20 AM Estimated Blood Loss: minimal cedwards 10:20 AM Post ECG NSR cedwards 10:20 AM Information taught Cardiac Cath and PCI cedwards 10:21 AM Education needs Procedure, Plan of Care, and Disease Process cedwards 10:21 AM Learning barriers :None cedwards 10:21 AM Education Methods Verbal cedwards 10:21 AM Education evaluation Able to repeat information cedwards 10:22 AM Site status No bleeding/hematoma - Rt Groin as reported by Shashi Fofana MD at 10:21 cedwards 10:22 AM Opsite applied cedwards 10:22 AM Plavix, Effient or Brilinta given Yes cedwards 10:31 AM Family placed in consult room. cedwards 10:32 AM Report given to Nandini OTTO Pt taken to ICU Room #1. 10:32 cedwards 10:33 AM Patient out of room: 10:33 cedwards 10:33 AM Complications: None cedwards 10:40 AM Lesion found in Mid LAD. Pre Stenosis: 60 Pre NATY Flow: cedwards Complications Complication None None Hemodynamics Pressures Site Systolic/A Wave Diastolic/V Wave Mean AO 218 217 217 AO 105 93 99 AO 109 73 91 AO 80 73 77 AO 104 82 93 LV 115 7 9 LV 138 -14 19 AO 131 83 104 Post Procedure Information Rhythm: NSR Post procedural instructions were given Site Checks Time Location Status Staff Sheath In? Note 10:21 AM Rt Groin No bleeding/hematoma Shashi Fofana MD Yes Pulses DP 2+ Updated by Oracio Quinteros RN on 12/18/2018 10:41:20 AM electronically signed on 12/18/2018 10:42:22 AM with status of Final
[2018-12-18] MEDS ORDERED: *HR* Dextrose 50 % in Water (Syg) 50 ML SYRINGE IVP PRN (15:01)
[2018-12-18] MEDS ORDERED: D5% in Water 1,000 ML IVC PRN (15:01)
[2018-12-18] MEDS ORDERED: Dextrose Gel 15 GM/37.5 ML TUBE PO PRN ×2 (15:01)
--- NOTE | 2018-12-18 15:02 | Event Note ---
Date of Encounter: 12/18/18 Time of Encounter: 15:01 - Cardiology Event Note Please use cardiology consult note as cardiology history and physical.
[2018-12-18] MEDS ORDERED: Insulin LISPRO 300 UNITS/3 ML VIAL SQ ONE (15:23)
[2018-12-18] MEDS ORDERED: Ondansetron 4 MG/2 ML VIAL IVP PRN (15:33)
[2018-12-18] MEDS ORDERED: Ondansetron 4 MG/2 ML VIAL ONE (15:39)
--- NOTE | 2018-12-18 15:50 | Internal Medicine Consult Note ---
Date of Encounter: 12/18/18 Time of Encounter: 15:10 - Summary of Assessment and Plan Summary of Assessment and Plan: Ms. Meyers is a 23 year old female with PMH of type I DM, bipolar disorder, medical noncompliance who is admitted to cardiology for STEMI. Hospitalist consulted for management of uncontrolled hyperglycemia. Assessment/Plan: 1. Uncontrolled type I DM with DKA DKA resolved, anion gap closed start sliding scale insulin algorithm accuchecks q4h will initiate basal insulin therapy once able to tolerate PO intake (pt is insulin naive, therefore will initiate at 0.2units/kg) continue IV fluids anti-emetic support as needed 2. Hypomagnesemia Mg supplemented continue to monitor electrolytes and replace as needed 3. STEMI s/p LHC continue management as per primary team 4. Leukocytosis likely reactive monitor off abx at this time if becomes febrile, obtain blood cultures, UA CXR negative for any acute cardio pulmonary disease Hx of bipolar disorder: initiate home medications after verification DVT ppx as per primary team Care plan discussed with patient/RN - Time Spent With Patient Total time spent is greater than 50% in coordination of care (as documented) at patient's floor/unit and/or counseling patient: Greater than 35 minutes Internal Medicine - CN: HPI - Data of Consult Requesting Physician: Taylor Fofana - Consult Narrative Reason for consult: management of DM History of present illness: Ms. Meyers is a 23 year old female with PMH of type I DM, bipolar disorder, medical noncompliance who is admitted to cardiology for STEMI. Hospitalist consulted for management of hyperglycemia secondary to type I DM. Pt was seen and examined with family and RN present at bedside. Pt is s/p C, currently sitting in bed and reports of severe nausea and vomiting. Arrival BMP was consistent with elevated BG with anion gap concerning for DKA. Repeat BMP reported hyperglycemia but resolution of anion gap She denies any chest pain during my evaluation, but reported abd pain discomfort associated with nausea and vomiting. Denies any shortness of breath, fever, or chills. Reports of being on oral antihyperglycemic agents at home. Ten point ROS is negative except as listed above. Past Med Surg Social Fam HX - Past Medical History Medical history: diabetes, fibromyalgia, hepatitis, other Additional medical history: neuropathy Psychiatric history: anxiety, bipolar, depression - Past Surgical History Surgical History: , other Additional surgical history: T&A - Social History Smoking Status: Never smoker Smokeless Tobacco Status: No Alcohol use: none Drug use: none Review of systems: Ten point ROS is negative except as listed above Internal Medicine - CN: Meds Lisa Connors U-100 02/28/18 [History] Gabapentin 02/28/18 [History] HumaLOG 02/28/18 [History] Naproxen 02/28/18 [History] Pioglitazone [Actos] 30 mg PO 02/28/18 [History] Promethazine [Phenergan] 12.5 mg PO Q8HR PRN #10 tablet 02/28/18 [Rx] metFORMIN [Glucophage] 500 mg PO 02/28/18 [History] Dicyclomine [Bentyl] 10 mg PO TID PRN #12 capsule 03/24/18 [Rx] Ondansetron HCl [Zofran] 4 mg PO Q6HR PRN #12 tab 03/24/18 [Rx] Morphine Immed Rel [Morphine Sulfate] 15 mg PO Q4HR PRN 3 Days #15 tab 04/09/18 [Rx] Ondansetron ODT [Zofran ODT] 4 mg SL Q8HR #20 tab.rapdis 08/08/18 [Rx] Allergy/AdvReac Type Severity Reaction Status Date / Time No Known Allergies Allergy Verified 04/05/17 15:40 Hospitalist - CN: Exam - Constitutional Vitals: Temp Pulse Resp BP Pulse Ox 97.8 F 103 12 107/77 100 12/18/18 15:00 12/18/18 15:00 12/18/18 15:00 12/18/18 15:00 12/18/18 15:00 Exam: General: AAO x 3, underweight HEENT: EOMI, NC/AT, no scleral icterus Respiratory: Clear to auscultate bilaterally, no wheezing, no rales Cardiovascular: Regular rhythm, tachycardia present, No murmurs GI: Soft, Non tender, non distended, normal bowel sounds Ext: No edema, no tenderness, positive pulses Neuro: AAO x 3, no focal deficits Internal Medicine - CN: Reslt - Labs CBC & Chem 7: 12/18/18 08:49 12/18/18 15:12 Labs: Short CBC 12/18/18 Range/Units 08:49 WBC 17.7 H D (4.3-11.1) K/mcL Hgb 14.8 (11.5-15.4) g/dL Hct 42.1 (35.3-44.9) % Plt Count 260 (140-400) K/mcL Neutrophils # 13.6 H (1.6-8.9) K/mcL BMP 12/18/18 08:49 Sodium 134 L Potassium 3.3 L Chloride 99 Carbon Dioxide 19 L BUN 22 H Creatinine 0.75 Glucose 573 H* Calcium 10.2 Cardiac Enzymes 12/18/18 Range/Units 08:49 Troponin I 1.91 H* (< 0.04) ng/mL Liver Function 12/18/18 Range/Units 08:49 Total Bilirubin 0.6 (0.3-1.0) mg/dL AST 34 (13-39) Units/L ALT 13 (7-52) Units/L Alkaline Phosphatase 77 (34-104) Units/L. Albumin 4.3 (3.5-5.7) g/dL . - ABG Interpretation ABG results: PT/INR, D-dimer D-Dimer 478 ng/mLFEU (0-500) 12/18/18 08:49 - Impressions Impressions Chest X-Ray 12/18/18 08:35 IMPRESSION: No acute findings in the chest. D/ / Martin Perales MD / Martin Perales MD Interpreting Provider: Martin Perales MD Echocardiogram 12/18/18 10:37 Impressions: LVEF 55%. Indeterminate diastolic function. Normal right ventricular structure and function. Mild mitral regurgitation. Mild tricuspid regurgitation. No pulmonary hypertension. Left Ventricular Wall Motion: Rest Echo Findings All wall segments showed normal motion. Findings: Study Quality * Technically adequate exam. ECG Findings * Normal sinus rhythm. Left Ventricle * LVEF 55%. * Indeterminate diastolic function. * Normal LV chamber size, wall thickness and function. Right Ventricle * Normal right ventricular structure and function. Left Atrium * Normal left atrial size. Right Atrium * Normal right atrial size. Aortic Valve * No aortic regurgitation. * Trileaflet aortic valve. * No aortic stenosis. Mitral Valve * Normal mitral valve structure. * No mitral stenosis. * Mild mitral regurgitation. Tricuspid Valve * Tricuspid valve not well visualized. * Mild tricuspid regurgitation. * Estimated RA pressure is 3 mmHg. * Estimated RVSP is 16 mmHg. * No pulmonary hypertension. Pulmonic Valve * Pulmonic valve is not well visualized. * No pulmonic stenosis. * No pulmonic regurgitation. Pulmonary Artery * Pulmonary artery not well visualized. Aorta * Normally sized aortic root. Pericardium * There is no pericardial effusion present. Interatrial Septum * No evidence of PFO by color Doppler. IVC * Normal IVC dimensions and inspiratory collapse. Consult Discharge Plan - Plan Referrals: NONE,PCP [Primary Care Provider] -
[2018-12-18 15:51] LABS: BUN/Creatinine Ratio 34 (6-26); Blood Urea Nitrogen 20 mg/dL (6-20); Calcium 8.9 mg/dL (8.6-10.3); Carbon Dioxide 21 mEq/L (23-29); Chloride 102 mEq/L (98-107); Glucose 446 mg/dL (70-105); Magnesium 1.5 mg/dL (1.6-2.6); Osmolality,Calculated 300 (280-300); Potassium 4.1 mEq/L (3.5-5.1); Sodium 134 mEq/L (136-145); eGFR For Non-African Americans > 60 (> 60)
[2018-12-18] MEDS ORDERED: *HR* Promethazine 25 MG/ML VIAL ONE (15:54)
--- NOTE | 2018-12-18 15:59 | Electrocardiograph Report ---
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
--- NOTE | 2018-12-18 16:05 | Electrocardiograph Report ---
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
[2018-12-18] MEDS ORDERED: *HR* Morphine 2 MG/ML SYRINGE IVP ONE (16:08)
--- NOTE | 2018-12-18 16:11 | Event Note ---
Date of Encounter: 12/18/18 Time of Encounter: 16:00 - Cardiology Event Note Notified by nursing staff of recurrent midsternal chest pressure/heaviness 10 out of 10 with nausea and vomiting. ECG obtained and reviewed with Dr. Fofana, appears somewhat improved from ECG after stenting. Initial troponin noted to be 1.91. Will check troponin in cycle overnight. Suspect Troponin will be elevated from PA already. Echo results pending. Per Dr. Fofana, IV Morphine 1mg and one now. We will reapply his cannula oxygen. Dr. Fofana aware, continue to monitor, consider repeat catheterization if clinically warranted.
[2018-12-18] MEDS: Insulin LISPRO 300 UNITS/3 ML VIAL SQ SCH ×4 (16:20→23:53)
[2018-12-18 16:28] LABS: Troponin I > 73.00 ng/mL (< 0.04)
[2018-12-18] MEDS: *HR* Promethazine 25 MG/ML VIAL IVP PRN (16:57)
[2018-12-18] MEDS ORDERED: Nitroglycerin 25 MG/250 ML INFUS..BTL IVC ONE (17:32)
[2018-12-18] MEDS ORDERED: *HR* Labetalol 20 MG/4 ML SYRINGE IVP ONE (17:32)
[2018-12-18] MEDS: *HR* Labetalol 20 MG/4 ML SYRINGE IVP PRN (17:47)
[2018-12-18] MEDS: Nitroglycerin 25 MG/250 ML INFUS..BTL IVC SCH (17:48)
[2018-12-18] MEDS: Pantoprazole 40 MG VIAL IVP SCH (17:48)
[2018-12-18] MEDS: Insulin DETEMIR 100 UNIT/ML X5UNITS SQ SCH ×2 (18:55→20:29)
[2018-12-18] MEDS ORDERED: GI Cocktail 40 ML EACH PO ONE (19:17)
[2018-12-18] MEDS: *HR* Ticagrelor 90 MG TABLET PO SCH (20:33)
[2018-12-19] MEDS: Melatonin 3 MG TABLET PO SCH ×2 (00:54→21:01)
[2018-12-19] MEDS: *HR* Promethazine 25 MG/ML VIAL IVP PRN ×3 (00:54→12:27)
[2018-12-19] MEDS: Amiodarone Premix 360 MG/200 ML BAG IVC SCH (02:58)
[2018-12-19] MEDS: Insulin LISPRO 300 UNITS/3 ML VIAL SQ SCH ×6 (03:06→23:57)
[2018-12-19] MEDS: Nitroglycerin 25 MG/250 ML INFUS..BTL IVC SCH (04:57)
[2018-12-19] MEDS: Ondansetron 4 MG/2 ML VIAL IVP PRN ×3 (05:03→17:28)
[2018-12-19] MEDS: 0.9 % Sodium Chloride 1,000 ML IVC SCH (05:06)
[2018-12-19 05:53] LABS: Basophils % 0.1 %; Hematocrit 35.2 % (35.3-44.9); Hemoglobin 12.1 g/dL (11.5-15.4); Immature Granulocytes % 0.7 % (0-4); Lymphocytes # 1.6 K/mcL (0.6-4.6); Lymphocytes % 7.8 %; Mean Corpuscular HGB Conc 34.4 g/dL (31.6-35.5); Mean Corpuscular Hemoglobin 29.9 pg (28.0-33.3); Mean Corpuscular Volume 86.9 fL (83.0-100.0); Mean Platelet Volume 9.7 fL (9.4-12.4); Monocytes # 0.5 K/mcL (0.0-1.3); Monocytes % 2.3 %; Neutrophils # 18.6 K/mcL (1.6-8.9); Platelet Count 187 K/mcL (140-400); Red Blood Count 4.05 M/mcL (3.82-4.97); Red Cell Distribution Width 12.9 % (11.5-14.5); Segmented Neutrophils % 89.1 %
[2018-12-19 06:15] LABS: BUN/Creatinine Ratio 32 (6-26); Blood Urea Nitrogen 16 mg/dL (6-20); Calcium 8.9 mg/dL (8.6-10.3); Carbon Dioxide 22 mEq/L (23-29); Chloride 105 mEq/L (98-107); Glucose 217 mg/dL (70-105); Magnesium 1.8 mg/dL (1.6-2.6); Osmolality,Calculated 292 (280-300); Phosphorous 2.4 mg/dL (2.7-4.5); Potassium 3.5 mEq/L (3.5-5.1); Sodium 137 mEq/L (136-145); eGFR For Non-African Americans > 60 (> 60)
[2018-12-19] MEDS: Pantoprazole 40 MG VIAL IVP SCH (09:04)
[2018-12-19] MEDS: *HR* Ticagrelor 90 MG TABLET PO SCH ×2 (09:06→21:01)
[2018-12-19] MEDS: Aspirin 81 MG TAB.CHEW PO SCH (09:07)
[2018-12-19] MEDS ORDERED: GI Cocktail 40 ML EACH PO ONE ×2 (09:26→17:47)
[2018-12-19] MEDS: D5% in 0.45% NACL 1,000 ML IVC SCH ×2 (10:11→19:40)
[2018-12-19] MEDS: Insulin DETEMIR 100 UNIT/ML X5UNITS SQ SCH (10:18)
--- NOTE | 2018-12-19 10:35 | Electrocardiograph Report ---
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
--- NOTE | 2018-12-19 11:00 | Internal Med Progress Note ---
Hospitalist Progress Note - Encounter Date of Encounter: 12/19/18 Time of Encounter: 10:57 - Subjective Interval History: Patient seen and examined earlier today with RN present at bedside. Pt reports of chest pain and is currently on nitro drip. She also reports of heartburn and states she did get relief after receiving the GI cocktail yesterday evening. pt is currently on PPI. Currently reports of being nauseous, not tolerating PO intake. Denies any headache, shortness of breath at this time. Ten point ROS is negative except as listed above - Exam Vitals: Temp Pulse Resp BP Pulse Ox 98.1 F 99 12 156/97 96 12/19/18 06:45 12/19/18 10:00 12/19/18 10:00 12/19/18 10:00 12/19/18 10:00 Exam: General: AAO x 3, underweight, fatigued HEENT: EOMI, NC/AT, no scleral icterus Respiratory: Clear to auscultate bilaterally, no wheezing, no rales Cardiovascular: Regular rhythm, tachycardia present, No murmurs GI: Soft, Non tender, non distended, normal bowel sounds Ext: No edema, no tenderness, positive pulses Neuro: AAO x 3, no focal deficits - Summary of Assessment and Plan Summary of Assessment and Plan: Ms. Meyers is a 23 year old female with PMH of type I DM, bipolar disorder, medical noncompliance who is admitted to cardiology for STEMI. Hospitalist consulted for management of uncontrolled hyperglycemia. Assessment/Plan: 1. Uncontrolled type I DM with DKA DKA resolved, anion gap closed BG better controlled will d/c 0.9% NS and start 0.45% D5W at 100 cc/hr change Levemir to 20 units SQ qdaily continue sliding scale insulin algorithm monitor fingerstick glucose q4h anti-emetic support as needed 2. Hypophosphatemia: Phos supplemented Hypomagnesemia: resolved continue to monitor electrolytes and replace as needed 3. STEMI s/p LHC continue management as per primary team 4. Leukocytosis likely reactive monitor off abx at this time if becomes febrile, obtain blood cultures, UA CXR negative for any acute cardio pulmonary disease 5. GERD PPI support GI cocktail ordered Hx of bipolar disorder: restarted necessary home medications DVT ppx as per primary team Care plan discussed with patient/RN/primary team - Time Spent with Patient Total time spent is greater than 50% in coordination of care (as documented) at patient's floor/unit and/or counseling patient: 25 - 35 minutes Internal Medicine: Result - Labs CBC & Chem 7: 12/19/18 05:29 12/19/18 05:29 Labs: Short CBC 12/19/18 Range/Units 05:29 WBC 20.9 H (4.3-11.1) K/mcL Hgb 12.1 D (11.5-15.4) g/dL Hct 35.2 L (35.3-44.9) % Plt Count 187 (140-400) K/mcL Neutrophils # 18.6 H (1.6-8.9) K/mcL BMP 12/18/18 12/19/18 15:12 05:29 Sodium 134 L 137 Potassium 4.1 3.5 Chloride 102 105 Carbon Dioxide 21 L 22 L BUN 20 16 Creatinine 0.59 L 0.50 L Glucose 446 H 217 H Calcium 8.9 8.9 Cardiac Enzymes 12/18/18 12/18/18 12/19/18 Range/Units 15:12 23:00 05:29 Troponin I > 73.00 H* 56.97 H* 29.02 H* (< 0.04) ng/mL - ABG Interpretation ABG results: PT/INR, D-dimer D-Dimer 478 ng/mLFEU (0-500) 12/18/18 08:49 - Impressions Impressions Echocardiogram 12/18/18 10:37 Impressions: LVEF 55%. Indeterminate diastolic function. Normal right ventricular structure and function. Mild mitral regurgitation. Mild tricuspid regurgitation. No pulmonary hypertension. Left Ventricular Wall Motion: Rest Echo Findings All wall segments showed normal motion. Findings: Study Quality * Technically adequate exam. ECG Findings * Normal sinus rhythm. Left Ventricle * LVEF 55%. * Indeterminate diastolic function. * Normal LV chamber size, wall thickness and function. Right Ventricle * Normal right ventricular structure and function. Left Atrium * Normal left atrial size. Right Atrium * Normal right atrial size. Aortic Valve * No aortic regurgitation. * Trileaflet aortic valve. * No aortic stenosis. Mitral Valve * Normal mitral valve structure. * No mitral stenosis. * Mild mitral regurgitation. Tricuspid Valve * Tricuspid valve not well visualized. * Mild tricuspid regurgitation. * Estimated RA pressure is 3 mmHg. * Estimated RVSP is 16 mmHg. * No pulmonary hypertension. Pulmonic Valve * Pulmonic valve is not well visualized. * No pulmonic stenosis. * No pulmonic regurgitation. Pulmonary Artery * Pulmonary artery not well visualized. Aorta * Normally sized aortic root. Pericardium * There is no pericardial effusion present. Interatrial Septum * No evidence of PFO by color Doppler. IVC * Normal IVC dimensions and inspiratory collapse. Consult Discharge Plan - Plan Referrals: NONE,PCP [Primary Care Provider] -
[2018-12-19] MEDS ORDERED: Potassium Chloride 40 MEQ, Lidocaine 1% 2 ML in D5% in Water 500 ML IVPB ONE (11:58)
--- NOTE | 2018-12-19 12:45 | Cardiology Progress Note ---
Date of Encounter: 12/19/18 Time of Encounter: 09:00 Assessment and Plan (1) STEMI (ST elevation myocardial infarction) Current Visit: Yes Status: Acute Per cardiology: -Acute inferior STEMI noted on ECG, patient was taken emergently to phlebotomist medical lab assistant and received LLUVIA to 100% RCA lesion. Has remaining moderate CAD in LAD. -Reports currently chest pain 4/10, states pain was relieved by GI cocktail yesterday evening. On nitro drip. -TTE with LVEF 55%, mild MR, mild TR, no wall motion abnormalities noted. -On asa, brilinta, statin, BB, nitro drip. -Continue dual anti-platelet therapy uninterrupted for at least one year. -Will add imdur and stop nitro drip. -Risk factor modification stressed to patient. -Will continue to monitor. Qualifiers: Involved coronary artery: right coronary artery Qualified Code(s): I21.11 - ST elevation (STEMI) myocardial infarction involving right coronary artery (2) Ventricular tachycardia Current Visit: Yes Status: Acute Per cardiology: -Patient had VT x2 during [facility] and was defibrillated. -Now on amio drip. -K 3.5 and Mg 1.8. -TTE with LVEF normal. -on BB. -Keep K >4 (replaced today), and Mg >2 (replaced today). -Discussed with , will stop amiodarone drip, will start amio 200mg BID for at least one month. (3) DM type 1 (diabetes mellitus, type 1) Current Visit: Yes Status: Chronic Per cardiology: -Known DM type I. -Blood sugars elevated in the 500s on admission. -Appreciate hospitalist assistance with management. Qualifiers: Diabetes mellitus complication status: with unspecified complications Qualified Code(s): E10.8 - Type 1 diabetes mellitus with unspecified complications (4) GERD (gastroesophageal reflux disease) Current Visit: Yes Status: Chronic Per cardiology: -Known GERD and gastroperesis. -On IV protonix. -GI cocktail ordered by hospitalist service. Qualifiers: Esophagitis presence: esophagitis presence not specified Qualified Code(s): K21.9 - Gastro-esophageal reflux disease without esophagitis (5) Bipolar disorder with depression Current Visit: No Status: Chronic Per cardiology: -known. -on home medications. (6) Leukocytosis Current Visit: Yes Status: Acute Per cardiology: -Likely reactive due to DC. -Afebrile. -Will continue to monitor Qualifiers: Leukocytosis type: unspecified Qualified Code(s): D72.829 - Elevated white blood cell count, unspecified Discussion w patient/family: The assessment and plan as outlined above was discussed with the patient who expressed understanding and agreement. All questions were answered. Thank you for involving us in the care of your patient. Please call with any questions. Discussed and reviewed with Subjective Principal diagnosis: STEMI Interval history: Patient asleep in bed, upon awakening, reports 4/10 chest pain. States was relieved by GI cocktail yesterday. Objective Vital Signs, Last 4 Hours Temp Pulse Resp BP Pulse Ox 12/19/18 12:00 107 12 95/69 100 12/19/18 11:15 99.2 F 12/19/18 11:00 114 12 141/82 100 12/19/18 10:00 99 12 156/97 96 12/19/18 09:00 98 12 145/96 100 General: Conversant, No Apparent Distress HEENT: Atraumatic, Normocephaly, Mucus Membranes Moist Neck: No JVD, Normal carotid pulses Cardiac: Reg Rate and Rhythm, Normal S1 and S2, No Murmur Lungs: Normal Breath Sounds, No Wheeze, Rales, Rhonchi Neuro: Alert and responsive, No focal deficits noted Abdomen: Soft, Non-Tender Skin: No rashes noted on visualized skin, Other (Right groin access site without hematoma. ) Musculoskeletal: No Chest Wall Tenderness Extremities: No Clubbing, No Cyanosis, No Edema, Normal Pulses Results 12/19/18 05:29 12/19/18 05:29 Lab Results Impressions Echocardiogram 12/18/18 10:37 Impressions: LVEF 55%. Indeterminate diastolic function. Normal right ventricular structure and function. Mild mitral regurgitation. Mild tricuspid regurgitation. No pulmonary hypertension. Left Ventricular Wall Motion: Rest Echo Findings All wall segments showed normal motion. Findings: Study Quality * Technically adequate exam. ECG Findings * Normal sinus rhythm. Left Ventricle * LVEF 55%. * Indeterminate diastolic function. * Normal LV chamber size, wall thickness and function. Right Ventricle * Normal right ventricular structure and function. Left Atrium * Normal left atrial size. Right Atrium * Normal right atrial size. Aortic Valve * No aortic regurgitation. * Trileaflet aortic valve. * No aortic stenosis. Mitral Valve * Normal mitral valve structure. * No mitral stenosis. * Mild mitral regurgitation. Tricuspid Valve * Tricuspid valve not well visualized. * Mild tricuspid regurgitation. * Estimated RA pressure is 3 mmHg. * Estimated RVSP is 16 mmHg. * No pulmonary hypertension. Pulmonic Valve * Pulmonic valve is not well visualized. * No pulmonic stenosis. * No pulmonic regurgitation. Pulmonary Artery * Pulmonary artery not well visualized. Aorta * Normally sized aortic root. Pericardium * There is no pericardial effusion present. Interatrial Septum * No evidence of PFO by color Doppler. IVC * Normal IVC dimensions and inspiratory collapse. Active Medications Aspirin (Aspirin) 81 mg PO DAILY ILEANA Stop: 06/20/19 09:01 Last Admin: 12/19/18 09:07 Dose: 81 mg Atorvastatin Calcium (Lipitor) 80 mg PO HS ILEANA Stop: 06/19/19 21:01 Last Admin: 12/18/18 20:34 Dose: 80 mg Dextrose/Water (Dextrose 50% (Syg)) 25 ml IVP AD PRN PRN Reason: Hypoglycemia Stop: 06/19/19 15:02 Glucagon (Glucagen) 1 mg IM ONCE PRN PRN Reason: Hypoglycemia Stop: 06/19/19 15:02 Glucose (Gluctose) 15 gm PO ONCE PRN PRN Reason: Hypoglycemia Stop: 06/19/19 15:02 Glucose (Gluctose) 30 gm PO ONCE PRN PRN Reason: Hypoglycemia Stop: 06/19/19 15:02 Amiodarone HCl/Dextrose (Amiodarone Drip Premix 360mg/200ml) 360 mg in 200 mls @ 16.667 mls/hr IVC CONT ILEANA Stop: 06/19/19 10:31 Last Infusion: 12/19/18 11:56 Dose: Infused Dextrose (Dextrose 5%) 1,000 mls @ 100 mls/hr IVC .Q10H PRN PRN Reason: HYPOGLYCEMIA Stop: 06/19/19 15:02 Nitroglycerin (Nitroglycerin Premix 25 Mg/250 Ml) 25 mg in 250 mls @ 3 mls/hr IVC .Q24H ILEANA; Protocol Stop: 06/19/19 17:31 Last Admin: 12/19/18 04:57 Dose: 50 mcg/min, 30 mls/hr Dextrose/Sodium Chloride (D5% And 0.45% Nacl 1000 Ml Bag) 1,000 mls @ 100 mls/hr IVC .Q10H [facility] Stop: 06/20/19 09:31 Last Admin: 12/19/18 10:11 Dose: 100 mls/hr Magnesium Sulfate 1 gm/ Sodium (Chloride) 102 mls @ 100 mls/hr IVPB ONCE ONE Stop: 12/19/18 12:59 Potassium Chloride 40 meq/ (Lidocaine 2 ml/ Dextrose) 522 mls @ 130.5 mls/hr IVPB ONCE ONE Stop: 12/19/18 15:57 Insulin Detemir (Levemir) 20 unit SQ DAILY [facility] Stop: 06/19/19 17:01 Last Admin: 12/19/18 10:18 Dose: 20 unit Insulin Human Lispro (Humalog) 0 units SQ Q4HR [facility]; Protocol Stop: 06/19/19 15:02 Last Admin: 12/19/18 11:49 Dose: 10 units Labetalol HCl (Labetalol) 10 mg IVP Q4HR PRN PRN Reason: Blood Pressure - High Stop: 06/19/19 20:01 Last Admin: 12/18/18 17:47 Dose: 10 mg Melatonin (Melatonin) 3 mg PO HS [facility] Stop: 06/20/19 00:31 Last Admin: 12/19/18 00:54 Dose: 3 mg Metoprolol Tartrate (Lopressor) 12.5 mg PO BID [facility] Stop: 06/19/19 21:01 Last Admin: 12/19/18 09:06 Dose: 12.5 mg Ondansetron HCl (Zofran) 4 mg IVP Q6HR PRN; Protocol PRN Reason: Nausea Stop: 06/20/19 04:56 Last Admin: 12/19/18 11:16 Dose: 4 mg Pantoprazole Sodium (Protonix) 40 mg IVP BID [facility] Stop: 06/19/19 17:31 Pregabalin (Lyrica) 150 mg PO TID [facility] Stop: 06/20/19 15:01 Promethazine HCl (Phenergan) 12.5 mg IVP Q6HR PRN PRN Reason: Nausea And Vomiting Stop: 06/19/19 15:53 Last Admin: 12/19/18 12:27 Dose: 12.5 mg Sertraline HCl (Zoloft) 50 mg PO DAILY [facility] Stop: 06/21/19 09:01 Ticagrelor (Brilinta) 90 mg PO BID [facility] Stop: 06/19/19 21:01 Last Admin: 12/19/18 09:06 Dose: 90 mg Laboratory Tests 12/19/18 12/19/18 12/19/18 05:29 05:29 05:29 WBC 20.9 H Hgb 12.1 D Potassium 3.5 Creatinine 0.50 L Magnesium 1.8 - Imaging and Cardiology Chest Xray: report reviewed Echo: report reviewed Cardiac cath: report reviewed - EKG Interpretation EKG results cardiology: other (Telemetry reviewed in ICU with events) Consult Discharge Plan - Plan Referrals: NONE,PCP [Primary Care Provider] -
[2018-12-19 14:17] LABS: Bilirubin,Urine Negative (Negative); Blood,Urine Moderate (Negative); Clarity,Urine Cloudy (Clear); Color,Urine Yellow (Yellow); Glucose,Urine (UA) 100 mg/dL (Normal); Ketones,Urine 15 mg/dL (Negative); Leukocyte Esterase,Urine Small (Negative); Nitrite,Urine Negative (Negative); Protein,Urine 100 mg/dL (Neg-Trace); Specific Gravity,Urine 1.024 (1.010-1.025); Urobilinogen,Urine Normal (Normal)
[2018-12-19] MEDS: Pregabalin 75 MG CAPSULE PO SCH ×2 (15:59→21:02)
[2018-12-19] MEDS: Isosorbide MONOnitrate (24 HR) 30 MG TAB.ER.24H PO SCH (15:59)
[2018-12-19] MEDS: Metoclopramide 10 MG/2 ML VIAL IVP SCH ×2 (17:28→23:56)
[2018-12-19] MEDS: *HR* Labetalol 20 MG/4 ML SYRINGE IVP PRN (17:28)
[2018-12-19] MEDS: *HR* Amiodarone 200 MG TABLET PO SCH (21:02)
[2018-12-20] MEDS: Insulin LISPRO 300 UNITS/3 ML VIAL SQ SCH ×3 (03:58→12:51)
[2018-12-20] MEDS: D5% in 0.45% NACL 1,000 ML IVC SCH (05:45)
[2018-12-20] MEDS: Metoclopramide 10 MG/2 ML VIAL IVP SCH ×2 (05:47→12:51)
[2018-12-20 06:15] LABS: Basophils % 0.1 %; Eosinophils % 0.3 %; Hematocrit 33.9 % (35.3-44.9); Hemoglobin 11.2 g/dL (11.5-15.4); Immature Granulocytes % 0.8 % (0-4); Lymphocytes # 2.8 K/mcL (0.6-4.6); Lymphocytes % 19.1 %; Mean Corpuscular Hemoglobin 29.9 pg (28.0-33.3); Mean Corpuscular Volume 90.4 fL (83.0-100.0); Mean Platelet Volume 10.3 fL (9.4-12.4); Monocytes # 1.1 K/mcL (0.0-1.3); Monocytes % 7.4 %; Neutrophils # 10.5 K/mcL (1.6-8.9); Platelet Count 161 K/mcL (140-400); Red Blood Count 3.75 M/mcL (3.82-4.97); Red Cell Distribution Width 13.3 % (11.5-14.5); Segmented Neutrophils % 72.3 %
[2018-12-20 06:34] LABS: BUN/Creatinine Ratio 13 (6-26); Blood Urea Nitrogen 9 mg/dL (6-20); Calcium 8.7 mg/dL (8.6-10.3); Carbon Dioxide 25 mEq/L (23-29); Chloride 112 mEq/L (98-107); Chol/HDL Ratio 3.7 (0-4.9); Cholesterol 131 mg/dL (< 200); Glucose 51 mg/dL (70-105); HDL Cholesterol 35 mg/dL (40-59); LDL Cholesterol,Calculated 85 mg/dL (0-99); Magnesium 1.9 mg/dL (1.6-2.6); Osmolality,Calculated 294 (280-300); Phosphorous 2.2 mg/dL (2.7-4.5); Potassium 3.4 mEq/L (3.5-5.1); Sodium 144 mEq/L (136-145); Triglycerides 55 mg/dL (< 150); eGFR For Non-African Americans > 60 (> 60)
[2018-12-20] MEDS: Pregabalin 75 MG CAPSULE PO SCH (08:19)
[2018-12-20] MEDS: Isosorbide MONOnitrate (24 HR) 30 MG TAB.ER.24H PO SCH (08:20)
[2018-12-20] MEDS: *HR* Ticagrelor 90 MG TABLET PO SCH (08:20)
[2018-12-20] MEDS: *HR* Amiodarone 200 MG TABLET PO SCH (08:20)
[2018-12-20] MEDS: Aspirin 81 MG TAB.CHEW PO SCH (08:20)
[2018-12-20] MEDS ORDERED: Potassium Phosphate 44 MEQ in 0.9 % Sodium Chloride 250 ML IVPB ONE (08:27)
[2018-12-20] MEDS ORDERED: Magnesium Oxide 400 MG TABLET PO ONE (08:46)
[2018-12-20] MEDS ORDERED: Pantoprazole 40 MG VIAL IVP SCH (09:00)
[2018-12-20] MEDS: Insulin DETEMIR 100 UNIT/ML X5UNITS SQ SCH (10:28)
[2018-12-20 11:40] VITALS: BP 108/78
--- NOTE | 2018-12-20 12:33 | Discharge Summary ---
- NOTES TO OUTPATIENT PROVIDER Notes to Outpatient Provider: Patient admitted as STEMI Orders not resulted at time of discharge: Pending orders 12/18/18 08:35 Urinalysis Reflex Cult & Micro [URIN] Stat ECG 12 lead ECG [ECG] Stat Date of Encounter: 12/20/18 Time of Encounter: 12:30 - Discharge Diagnosis (1) STEMI (ST elevation myocardial infarction) Priority: Primary Status: Acute Comments: ADmitted as STEMI Qualifiers: Involved coronary artery: right coronary artery Qualified Code(s): I21.11 - ST elevation (STEMI) myocardial infarction involving right coronary artery (2) Ventricular tachycardia Priority: Secondary Status: Acute Comments: VT during LHC, no recurrence (3) DM type 1 (diabetes mellitus, type 1) Priority: Secondary Status: Chronic Comments: Known. Qualifiers: Diabetes mellitus complication status: with unspecified complications Qualified Code(s): E10.8 - Type 1 diabetes mellitus with unspecified complications (4) GERD (gastroesophageal reflux disease) Priority: Secondary Status: Chronic Comments: Known Qualifiers: Esophagitis presence: esophagitis presence not specified Qualified Code(s): K21.9 - Gastro-esophageal reflux disease without esophagitis (5) Bipolar disorder with depression Priority: Secondary Status: Chronic Comments: Known. (6) Leukocytosis Priority: Secondary Status: Acute Comments: Improved. Thought to be reactive secondary to OR. Qualifiers: Leukocytosis type: unspecified Qualified Code(s): D72.829 - Elevated white blood cell count, unspecified - Hospital Course Hospital course: Ms. Meyers is a 23 year old female who was admitted to [facility] with inferior STEMI. Patient was taken emergently to the rd lab technician. Patient had LLUVIA placed to 100% RCA lesion. Has remaining moderate LAD disease. During LHC, patient had VT and was defibrillated. Pateint was then started on IV amio for 24 hours. Recommended for amiodarone 200mg BID for at least one month. Patient is on ASA, brilinta. Educated on dual anti-platelet therapy uninterrupted for at least one year, states understanding. Brilinta assistance card given to patient. Denies chest pain. On BB, statin. TTE with LVEF preserved, no wall motion abnormalities noted. Patient has type I DM, hospitalist was consulted for recommendations. Discussed with Dr.Lennox, recommend discharge on home medications. Patient to resume metformin on 12/21/18. Recommend endocrinology follow up outpatient, states understanding. Patient also with known gastroparesis, started on reglan with resolution of symptoms. Interaction with reglan and zoloft with possible extrapyramidal side effects. Discussed and reviewed with , Will give one month supply of reglan po. Recommend GI evaluation outpatient, states understanding. Right groin access site without ecchymosis or hematoma. Right groin access site management education reviewed with patient. Patient is being prepped for discharge home in stable condition. All questions answered. Patient will follow up with [facility], follow up set. - Time Spent with Patient Total time spent providing and/or coordinating discharge services: Greater than 30 minutes - Discharge Medications Prescriptions: New Nitroglycerin 0.4 mg SL Q5MI PRN #15 tab.subl PRN Reason: Chest Pain Amiodarone [Cordarone] 200 mg PO BID #60 tablet Aspirin 81 mg PO DAILY #30 tab.chew Atorvastatin [Lipitor] 80 mg PO HS #30 tablet Isosorbide MONOnitrate (24 HR) [Imdur] 30 mg PO DAILY #30 tab.er.24h Metoprolol [Lopressor] 12.5 mg PO BID #60 tablet Omeprazole [PriLOSEC] 20 mg PO DAILY@0630 #30 capsule. Ticagrelor [Brilinta] 90 mg PO BID #60 tablet Continue Dulaglutide [Trulicity] 0.75 mg SQ WE GlipiZIDE XL (24 HR) [Glucotrol XL] 10 mg PO DAILY Pregabalin [Lyrica] 150 mg PO TID Sertraline [Zoloft] 50 mg PO DAILY Metformin HCl 1,000 mg PO BID #0 Discontinued Lisinopril 2.5 mg PO DAILY Home Medications: Dulaglutide [Trulicity] 0.75 mg SQ WE 12/18/18 [History] GlipiZIDE XL (24 HR) [Glucotrol XL] 10 mg PO DAILY 12/18/18 [History] Pregabalin [Lyrica] 150 mg PO TID 12/18/18 [History] Sertraline [Zoloft] 50 mg PO DAILY 12/18/18 [History] Amiodarone [Cordarone] 200 mg PO BID #60 tablet 12/20/18 [Rx] Aspirin 81 mg PO DAILY #30 tab.chew 12/20/18 [Rx] Atorvastatin [Lipitor] 80 mg PO HS #30 tablet 12/20/18 [Rx] Isosorbide MONOnitrate (24 HR) [Imdur] 30 mg PO DAILY #30 tab.er.24h 12/20/18 [Rx] Metformin HCl 1,000 mg PO BID #0 12/20/18 [Rx] Metoprolol [Lopressor] 12.5 mg PO BID #60 tablet 12/20/18 [Rx] Nitroglycerin 0.4 mg SL Q5MI PRN #15 tab.subl 12/20/18 [Rx] Omeprazole [PriLOSEC] 20 mg PO DAILY@0630 #30 capsule.dr 12/20/18 [Rx] Ticagrelor [Brilinta] 90 mg PO BID #60 tablet 12/20/18 [Rx] Allergies/Adverse Reactions: Allergy/AdvReac Type Severity Reaction Status Date / Time No Known Allergies Allergy Verified 12/18/18 16:21 Date of admission: 12/18/18 09:42 Primary care physician: PCP NONE Consults: 12/18/18 10:37 Consult to Cardiac Rehabilitation-Phase1 [CONS] Routine Comment: Reason for Consult: AMI Call Completed: Yes Consult to Nurse Navigator [CONS] Routine Comment: 12/18/18 14:01 Consult to Hospitalist [CONS] Routine Consulting Provider: Hospitalist Ksenia Reason for Consult: assistance with DM management. Called by Call Completed: Yes Discharging clinician: Autumn Peguero Anticipated date of discharge: 12/20/18 Physical Examination Vital Signs, Last 4 Hours Temp Pulse Resp BP Pulse Ox 12/20/18 11:36 98.6 F 102 16 108/78 100 12/20/18 11:00 99 15 102/65 100 12/20/18 10:00 99 18 101/63 100 12/20/18 09:09 99 General: Conversant, No Apparent Distress HEENT: Atraumatic, Normocephaly, Mucus Membranes Moist Neck: No JVD, Normal carotid pulses Cardiac: Reg Rate and Rhythm, Normal S1 and S2, No Murmur Lungs: Normal Breath Sounds, No Wheeze, Rales, Rhonchi Neuro: Alert and responsive, No focal deficits noted Abdomen: Soft, Non-Tender Skin: No rashes noted on visualized skin, Other (Right groin access site without ecchymosis or hematoma. ) Musculoskeletal: No Chest Wall Tenderness Extremities: No Clubbing, No Cyanosis, No Edema, Normal Pulses - Patient Status Disposition: Home, Self-Care Condition: Good Functional capacity at discharge: independent ambulation Overall status at discharge: patient is progressing back to baseline - Discharge Instructions Follow Up With: NONE,PCP [Primary Care Provider] - Additional Instructions: RISK FACTORS: STOP SMOKING: If you smoke, STOP. Smoking or tobacco use significantly increases your risk of heart disease because nicotine causes the arteries to narrow or constrict. It also causes fats to stick to the artery. Your chances of having a heart attack are greatly increased if you continue to smoke. For more information, call the education line for smoking cessation 9-279-XGXNVFY EAT A LOW FAT/CHOLESTEROL/SODIUM DIET: This diet may help reduce your chances of having a heart attack. LIFTING: Avoid lifting anything more than 10 pounds for 5-7 days Prior to straining, laughing, sneezing and/or coughing, apply manual pressure directly over insertion site. ACTIVITY: You may walk or climb stairs as tolerated You can resume sexual activity as tolerated In general, you are encouraged to engage in a minimum of 30 minutes or more of moderate intensity physical activity, such as brisk walking, daily or at least 3-4 times weekly BATHING Do not submerge the site into water (bath tub, hot tub, swimming pool) for 1 week. This can be a source for infection into the blood stream. You may shower after 24 hours SITE CARE: After 24 hours, you may remove the dressing and leave the site open to air. Keep the site clean and dry. Clean gently and pat dry. You can expect bruising and tenderness that gradually resolve within a week or two. Return to work as instructed per your physician Resume driving as instructed per physician Keep all scheduled follow up appointments Resume medications as instructed IMPORTANT: If prescribed a Platelet Aggregation Inhibitor such as, Plavix, Brilinta or Effient: Duration of therapy is minimum one year These medications are often used in combination with Aspirin in prevention of future heart attacks Never discontinue unless consult with your [employer] STROKE (CVA) Risk factors for a stroke are: Age, cigarette smoking, diabetes, excessive alcohol consumption, family history, high blood pressure, overweight, physical inactivity, prior stroke, heart attack, diagnosis of carotid artery stenosis or other artery disease. Warning signs: Sudden numbness or weakness of the face, arm or leg; especially on one side of the body, sudden confusion, trouble speaking or understanding, sudden trouble seeing in one or both eyes, sudden trouble walking, dizziness, loss of balance or coordination, sudden severe headache with no cause. Call 911 or go to the Emergency Room. CONGESTIVE HEART FAILURE: If you have been diagnosed with Congestive Heart Failure (CHF) and your symptoms return, make an appointment with your physician Weigh yourself daily. Notify your physician if you have a weight gain of two or more pounds in one day or five or more pounds in one week. If you experience any difficulty breathing, please call 911 BLEEDING: Although the risk of bleeding is minimal, it can happen. If you have any bleeding from the site, apply firm pressure above the puncture site for 10-15 minutes. If the bleeding does not stop, continue manual pressure and call 911 Contact your physician if: You develop a fever greater than 101 degrees Fahrenheit Your site becomes reddened or has any drainage You have an increase in pain or burning at the site or if a large knot forms at the site. If you experience chest pain, shortness of breath, dizziness, or extreme tiredness, stop the activity and rest. Please notify your physicians office if you experience any of these symptoms and they are not relieved by rest please call 911! - Diet and Activity Activity: increase activity as tolerated (Follow restrictions as above) Diet: diabetic diet, low fat, low cholesterol, low salt diet
[2018-12-20] MEDS ORDERED: Nitroglycerin 0.4 MG TAB.SUBL SL PRN (12:42)
--- NOTE | 2018-12-20 12:49 | Internal Med Progress Note ---
Hospitalist Progress Note - Encounter Date of Encounter: 12/20/18 Time of Encounter: 12:47 - Subjective Interval History: Patient seen and examined earlier this morning. sitting in bed and reported of feeling significantly better today. Denies any pain,nausea, or vomiting. reports of tolerating diet appropriately Pt's BG are better controlled. Pt is advised to follow up with endocrinology as outpatient for better control of her blood glucose as she was reported of being in DKA during this hospitalization as well. No overnight events reported ten point ROS is negative except as listed above - Exam Vitals: Temp Pulse Resp BP Pulse Ox 98.6 F 102 16 108/78 100 12/20/18 11:36 12/20/18 11:36 12/20/18 11:36 12/20/18 11:36 12/20/18 11:36 Exam: General: AAO x 3, no acute distress HEENT: EOMI, NC/AT, no scleral icterus Respiratory: Clear to auscultate bilaterally, no wheezing, no rales Cardiovascular: Regular rhythm, tachycardia present, No murmurs GI: Soft, Non tender, non distended, normal bowel sounds Ext: No edema, no tenderness, positive pulses Neuro: AAO x 3, no focal deficits - Summary of Assessment and Plan Summary of Assessment and Plan: Ms. Meyers is a 23 year old female with PMH of type I DM, bipolar disorder, medical noncompliance who is admitted to cardiology for STEMI. Hospitalist consulted for management of uncontrolled hyperglycemia. Assessment/Plan: 1. Uncontrolled type I DM with DKA DKA resolved, anion gap closed BG better controlled Levemir to 20 units SQ qdaily continue sliding scale insulin algorithm anti-emetic support as needed 2. Hypophosphatemia: Phos supplemented Hypokalemia: K supplemented Hypomagnesemia: resolved continue to monitor electrolytes and replace as needed 3. STEMI s/p LHC continue management as per primary team 4. Leukocytosis likely reactive monitor off abx at this time if becomes febrile, obtain blood cultures, UA CXR negative for any acute cardio pulmonary disease 5. GERD PPI support GI cocktail ordered Hx of bipolar disorder: restarted necessary home medications DVT ppx as per primary team Care plan discussed with patient/RN/primary team - Time Spent with Patient Total time spent is greater than 50% in coordination of care (as documented) at patient's floor/unit and/or counseling patient: 25 - 35 minutes Internal Medicine: Result - Labs CBC & Chem 7: 12/20/18 05:47 12/20/18 05:47 Labs: Short CBC 12/20/18 Range/Units 05:47 WBC 14.6 H (4.3-11.1) K/mcL Hgb 11.2 L (11.5-15.4) g/dL Hct 33.9 L (35.3-44.9) % Plt Count 161 (140-400) K/mcL Neutrophils # 10.5 H (1.6-8.9) K/mcL BMP 12/20/18 05:47 Sodium 144 Potassium 3.4 L Chloride 112 H Carbon Dioxide 25 BUN 9 Creatinine 0.67 Glucose 51 L Calcium 8.7 Urine 12/19/18 Range/Units 09:29 Urine Color Yellow (Yellow) Urine Clarity Cloudy A (Clear) Urine pH 6.0 (5.0-8.0) pH Units Ur Specific [place] 1.024 (1.010-1.025) Urine Protein 100 H (Neg-Trace) mg/dL Urine Glucose (UA) 100 H (Normal) mg/dL - ABG Interpretation ABG results: PT/INR, D-dimer D-Dimer 478 ng/mLFEU (0-500) 12/18/18 08:49 Consult Discharge Plan - Plan Additional Instructions: RISK FACTORS: STOP SMOKING: If you smoke, STOP. Smoking or tobacco use significantly increases your risk of heart disease because nicotine causes the arteries to narrow or constrict. It also causes fats to stick to the artery. Your chances of having a heart attack are greatly increased if you continue to smoke. For more information, call the education line for smoking cessation 1-554-PALVGVZ EAT A LOW FAT/CHOLESTEROL/SODIUM DIET: This diet may help reduce your chances of having a heart attack. LIFTING: Avoid lifting anything more than 10 pounds for 5-7 days Prior to straining, laughing, sneezing and/or coughing, apply manual pressure directly over insertion site. ACTIVITY: You may walk or climb stairs as tolerated You can resume sexual activity as tolerated In general, you are encouraged to engage in a minimum of 30 minutes or more of moderate intensity physical activity, such as brisk walking, daily or at least 3-4 times weekly BATHING Do not submerge the site into water (bath tub, hot tub, swimming pool) for 1 week. This can be a source for infection into the blood stream. You may shower after 24 hours SITE CARE: After 24 hours, you may remove the dressing and leave the site open to air. Keep the site clean and dry. Clean gently and pat dry. You can expect bruising and tenderness that gradually resolve within a week or two. Return to work as instructed per your physician Resume driving as instructed per physician Keep all scheduled follow up appointments Resume medications as instructed IMPORTANT: If prescribed a Platelet Aggregation Inhibitor such as, Plavix, Brilinta or Effient: Duration of therapy is minimum one year These medications are often used in combination with Aspirin in prevention of future heart attacks Never discontinue unless consult with your To[employer] STROKE (CVA) Risk factors for a stroke are: Age, cigarette smoking, diabetes, excessive alcohol consumption, family history, high blood pressure, overweight, physical inactivity, prior stroke, heart attack, diagnosis of carotid artery stenosis or other artery disease. Warning signs: Sudden numbness or weakness of the face, arm or leg; especially on one side of the body, sudden confusion, trouble speaking or understanding, sudden trouble seeing in one or both eyes, sudden trouble walking, dizziness, loss of balance or coordination, sudden severe headache with no cause. Call 911 or go to the Emergency Room. CONGESTIVE HEART FAILURE: If you have been diagnosed with Congestive Heart Failure (CHF) and your symptoms return, make an appointment with your physician Weigh yourself daily. Notify your physician if you have a weight gain of two or more pounds in one day or five or more pounds in one week. If you experience any difficulty breathing, please call 911 BLEEDING: Although the risk of bleeding is minimal, it can happen. If you have any bleeding from the site, apply firm pressure above the puncture site for 10-15 minutes. If the bleeding does not stop, continue manual pressure and call 911 Contact your physician if: You develop a fever greater than 101 degrees Fahrenheit Your site becomes reddened or has any drainage You have an increase in pain or burning at the site or if a large knot forms at the site. If you experience chest pain, shortness of breath, dizziness, or extreme tiredness, stop the activity and rest. Please notify your physicians office if you experience any of these symptoms and they are not relieved by rest please call 911! Referrals: NONE,PCP [Primary Care Provider] -
[2018-12-20] MEDS ORDERED: Metoclopramide 10 MG/10 ML UD.LIQ PO SCH (18:00)
--- NOTE | 2018-12-21 22:54 | Electrocardiograph Report ---
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
== END 2018-12-20 15:05 | disposition home or self-care (01) | DRG 174 ==
LOC: EMEROOARM 08:24 → ICNU 09:42 → SUATTDRO 09:42 → ICNU 10:14 → 2NNU 12-19 19:35
PROVIDERS: ADMIT Internal Medicine Cardiovascular Disease; ATTEND Internal Medicine

== ENCOUNTER 2019-07-30 12:03 | Observation (INO) ==
[2019-07-30 12:48] LABS: Bilirubin,Urine Negative (Negative); Blood,Urine Moderate (Negative); Clarity,Urine Cloudy (Clear); Color,Urine Yellow (Yellow); Glucose,Urine (UA) >=1000 mg/dL (Normal); Ketones,Urine 15 mg/dL (Negative); Leukocyte Esterase,Urine Small (Negative); Nitrite,Urine Negative (Negative); PH,Urine 6.5 pH Units (5.0-8.0); Protein,Urine 100 mg/dL (Neg-Trace); Specific Gravity,Urine 1.027 (1.010-1.025); Urobilinogen,Urine Normal (Normal)
[2019-07-30 12:51] LABS: Bacteria,Urine Moderate per hpf (None-Few); Hyaline Casts,Urine None Seen per lpf (None-Few); Squamous Epithelial Cell,Urine Moderate per lpf (None-Few); WBC,Urine TNTC per hpf (0-3)
[2019-07-30 13:04] LABS: RBC,Urine 0-3 per hpf (0-3)
[2019-07-30] MEDS: 0.9 % Sodium Chloride 1,000 ML IVC SCH ×2 (14:35→15:20)
[2019-07-30] MEDS ORDERED: 0.9 % Sodium Chloride 1,000 ML IVC ONE (14:58)
[2019-07-30 14:59] LABS: Basophils % 0.4 %; Eosinophils % 0.3 %; Hematocrit 38.3 % (35.3-44.9); Hemoglobin 13.4 g/dL (11.5-15.4); Immature Granulocytes % 0.4 % (0-4); Lymphocytes # 1.5 K/mcL (0.6-4.6); Mean Corpuscular Hemoglobin 29.4 pg (28.0-33.3); Mean Platelet Volume 10.9 fL (9.4-12.4); Monocytes # 0.6 K/mcL (0.0-1.3); Monocytes % 8.7 %; Neutrophils # 5.2 K/mcL (1.6-8.9); Platelet Count 175 K/mcL (140-400); Red Blood Count 4.56 M/mcL (3.82-4.97); Red Cell Distribution Width 12.2 % (11.5-14.5); Segmented Neutrophils % 70.2 %; White Blood Count 7.3 K/mcL (4.3-11.1)
[2019-07-30 15:36] LABS: Alanine Aminotransferase 21 Units/L (7-52); Albumin 3.4 g/dL (3.5-5.7); Albumin/Globulin Ratio 0.9 (1.1-2.2); Alkaline Phosphatase 112 Units/L (34-104); Aspartate Amino Transferase 19 Units/L (13-39); BUN/Creatinine Ratio 22 (6-26); Bilirubin,Total 0.4 mg/dL (0.3-1.0); Blood Urea Nitrogen 25 mg/dL (6-20); Calcium 9.1 mg/dL (8.6-10.3); Carbon Dioxide 30 mEq/L (23-29); Chloride 89 mEq/L (98-107); Globulin 3.9 g/dL (2.4-3.5); Glucose 747 mg/dL (70-105); Osmolality,Calculated 312 (280-300); Phosphorous 3.3 mg/dL (2.7-4.5); Potassium 3.8 mEq/L (3.5-5.1); Sodium 131 mEq/L (136-145); Total Protein 7.3 g/dL (6.4-8.9); eGFR For African Americans > 60 (> 60); eGFR For Non-African Americans 57 (> 60)
[2019-07-30] MEDS ORDERED: cefTRIAXone 1,000 MG in Water for inj. (sterile) 10 ML IVP ONE (16:18)
[2019-07-30] MEDS ORDERED: Ondansetron 4 MG/2 ML VIAL IVP ONE (16:18)
[2019-07-30] MEDS ORDERED: Insulin Human Regular 10 UNIT in 0.9 % Sodium Chloride 10 ML IV ONE (16:49)
[2019-07-30] MEDS ORDERED: Promethazine 25 MG in 0.9 % Sodium Chloride 50 ML IVPB ONE (16:49)
[2019-07-30] MEDS ORDERED: *HR* Dextrose 50 % in Water (Syg) 50 ML SYRINGE IVP PRN ×3 (17:33→23:13)
[2019-07-30] MEDS ORDERED: D5% in Water 1,000 ML IVC PRN (17:33)
[2019-07-30] MEDS ORDERED: Dextrose Gel 15 GM/37.5 ML TUBE PO PRN ×2 (17:33)
[2019-07-30] MEDS ORDERED: Potassium Chloride Elixir 20 MEQ/15 ML UDC PO ONE (17:34)
[2019-07-30] MEDS ORDERED: Insulin LISPRO 300 UNITS/3 ML VIAL SQ SCH ×2 (17:45→22:57)
[2019-07-30] MEDS ORDERED: 0.9 % Sodium Chloride 1,000 ML IVC SCH (17:45)
[2019-07-30] MEDS ORDERED: Nitroglycerin 0.4 MG TAB.SUBL SL PRN (18:08)
[2019-07-30 19:55] LABS: Estimated Average Glucose 484 mg/dl
[2019-07-30] MEDS ORDERED: Insulin DETEMIR 100 UNIT/ML X5UNITS SQ SCH (21:00)
[2019-07-30 21:57] LABS: ABG Base Excess 1 mEq/L (-2 to 3); ABG HCO3 26 mEq/L (21-27); ABG Oxygen Saturation 97 % (95-98); ABG PCO2 43 mmHg (35-45); ABG PO2 86 mmHg (85-104); ABG TCO2 28 mEq/L (20-26)
[2019-07-30] MEDS: *HR* Ticagrelor 90 MG TABLET PO SCH (22:05)
[2019-07-30] MEDS: Pregabalin 75 MG CAPSULE PO SCH (22:29)
[2019-07-30] MEDS ORDERED: D5% in 0.45% NACL 1,000 ML IVC PRN (23:08)
[2019-07-30] MEDS ORDERED: Insulin Regular, Human 100 UNIT/ML IV ONE (23:08)
[2019-07-30] MEDS ORDERED: Insulin Regular, Human 100 UNIT/ML IV PRN (23:13)
[2019-07-30] MEDS ORDERED: 0.45 % Sodium Chloride w/KCl 20 MEQ/1,000 ML MLS IVC PRN (23:15)
[2019-07-30] MEDS ORDERED: Insulin Human Regular 100 UNIT in 0.9 % Sodium Chloride 100 ML IVC SCH (23:15)
[2019-07-30] MEDS ORDERED: 0.9 % Sodium Chloride 1,000 ML IVC PRN (23:15)
[2019-07-31 00:31] LABS: BUN/Creatinine Ratio 23 (6-26); Blood Urea Nitrogen 19 mg/dL (6-20); Calcium 8.1 mg/dL (8.6-10.3); Carbon Dioxide 24 mEq/L (23-29); Chloride 105 mEq/L (98-107); Glucose 425 mg/dL (70-105); Osmolality,Calculated 306 (280-300); Potassium 3.2 mEq/L (3.5-5.1); Sodium 138 mEq/L (136-145); eGFR For African Americans > 60 (> 60); eGFR For Non-African Americans > 60 (> 60)
[2019-07-31] MEDS: D5% in 0.45% NACL w KCl 20 MEQ/1,000 ML MLS IVC PRN ×2 (02:50→06:54)
[2019-07-31] MEDS ORDERED: Insulin Human Regular 100 UNIT in 0.9 % Sodium Chloride 100 ML IVC SCH (04:45)
[2019-07-31 05:05] LABS: Hematocrit 31.5 % (35.3-44.9); Mean Corpuscular HGB Conc 34.9 g/dL (31.6-35.5); Mean Corpuscular Hemoglobin 29.4 pg (28.0-33.3); Mean Corpuscular Volume 84.2 fL (83.0-100.0); Mean Platelet Volume 10.5 fL (9.4-12.4); Platelet Count 147 K/mcL (140-400); Red Blood Count 3.74 M/mcL (3.82-4.97); Red Cell Distribution Width 12.3 % (11.5-14.5)
[2019-07-31 05:25] LABS: BUN/Creatinine Ratio 23 (6-26); Blood Urea Nitrogen 15 mg/dL (6-20); Calcium 7.7 mg/dL (8.6-10.3); Carbon Dioxide 23 mEq/L (23-29); Chloride 110 mEq/L (98-107); Glucose 228 mg/dL (70-105); Osmolality,Calculated 298 (280-300); Potassium 3.4 mEq/L (3.5-5.1); Sodium 140 mEq/L (136-145); eGFR For African Americans > 60 (> 60); eGFR For Non-African Americans > 60 (> 60)
[2019-07-31] MEDS: *HR* Heparin 5,000 UNIT/ML VIAL SQ SCH ×2 (06:57→16:50)
[2019-07-31] MEDS ORDERED: D5% in Water 1,000 ML IVC PRN (07:41)
[2019-07-31] MEDS ORDERED: Dextrose Gel 15 GM/37.5 ML TUBE PO PRN ×2 (07:41)
[2019-07-31] MEDS ORDERED: *HR* Dextrose 50 % in Water (Syg) 50 ML SYRINGE IVP PRN (07:41)
[2019-07-31] MEDS ORDERED: Potassium Chloride 40 MEQ, Lidocaine 1% 2 ML in 0.9 % Sodium Chloride 500 ML IVPB ONE (07:42)
[2019-07-31] MEDS ORDERED: Potassium Chloride 40 MEQ in D5% in 0.45% NACL 1,000 ML IVC SCH (07:45)
[2019-07-31] MEDS: Pregabalin 75 MG CAPSULE PO SCH ×3 (08:21→21:31)
[2019-07-31] MEDS: Aspirin 81 MG TAB.CHEW PO SCH (08:21)
[2019-07-31] MEDS: Isosorbide MONOnitrate (24 HR) 30 MG TAB.ER.24H PO SCH (08:21)
[2019-07-31] MEDS: *HR* Ticagrelor 90 MG TABLET PO SCH ×2 (08:21→21:30)
[2019-07-31] MEDS: cefTRIAXone 2,000 MG in Water for inj. (sterile) 20 ML IVP SCH (08:23)
[2019-07-31 10:11] LABS: BUN/Creatinine Ratio 20 (6-26); Blood Urea Nitrogen 13 mg/dL (6-20); Calcium 7.7 mg/dL (8.6-10.3); Carbon Dioxide 26 mEq/L (23-29); Chloride 107 mEq/L (98-107); Glucose 184 mg/dL (70-105); Osmolality,Calculated 291 (280-300); Potassium 3.8 mEq/L (3.5-5.1); Sodium 138 mEq/L (136-145); eGFR For African Americans > 60 (> 60); eGFR For Non-African Americans > 60 (> 60)
[2019-07-31] MEDS: 0.9 % Sodium Chloride 1,000 ML IVC SCH ×2 (11:46→21:32)
[2019-07-31] MEDS: Insulin LISPRO 300 UNITS/3 ML VIAL SQ SCH ×2 (11:47→17:09)
[2019-07-31] MEDS ORDERED: Insulin DETEMIR 100 UNIT/ML X5UNITS SQ SCH (21:00)
[2019-07-31] MEDS ORDERED: Insulin LISPRO 300 UNITS/3 ML VIAL SQ SCH (21:00)
[2019-08-01 05:30] LABS: Hematocrit 34.4 % (35.3-44.9); Hemoglobin 11.1 g/dL (11.5-15.4); Mean Corpuscular HGB Conc 32.3 g/dL (31.6-35.5); Mean Corpuscular Volume 89.8 fL (83.0-100.0); Mean Platelet Volume 10.8 fL (9.4-12.4); Platelet Count 154 K/mcL (140-400); Red Blood Count 3.83 M/mcL (3.82-4.97); Red Cell Distribution Width 12.5 % (11.5-14.5); White Blood Count 5.3 K/mcL (4.3-11.1)
[2019-08-01 05:47] LABS: BUN/Creatinine Ratio 22 (6-26); Blood Urea Nitrogen 17 mg/dL (6-20); Calcium 7.9 mg/dL (8.6-10.3); Carbon Dioxide 25 mEq/L (23-29); Chloride 108 mEq/L (98-107); Glucose 350 mg/dL (70-105); Osmolality,Calculated 306 (280-300); Potassium 4.1 mEq/L (3.5-5.1); Sodium 140 mEq/L (136-145); eGFR For African Americans > 60 (> 60); eGFR For Non-African Americans > 60 (> 60)
[2019-08-01 05:51] LABS: Phosphorous 2.2 mg/dL (2.7-4.5)
[2019-08-01] MEDS: 0.9 % Sodium Chloride 1,000 ML IVC SCH ×2 (06:39→11:07)
[2019-08-01] MEDS: *HR* Heparin 5,000 UNIT/ML VIAL SQ SCH (06:40)
[2019-08-01] MEDS: Insulin LISPRO 300 UNITS/3 ML VIAL SQ SCH ×2 (08:39→12:46)
[2019-08-01] MEDS: cefTRIAXone 2,000 MG in Water for inj. (sterile) 20 ML IVP SCH (08:39)
[2019-08-01] MEDS: Isosorbide MONOnitrate (24 HR) 30 MG TAB.ER.24H PO SCH (08:40)
[2019-08-01] MEDS: Pregabalin 75 MG CAPSULE PO SCH (08:41)
[2019-08-01] MEDS: Aspirin 81 MG TAB.CHEW PO SCH (08:41)
[2019-08-01] MEDS: *HR* Ticagrelor 90 MG TABLET PO SCH (08:41)
[2019-08-01] MEDS ORDERED: Insulin Regular, Human 100 UNIT/ML SQ ONE (09:17)
[2019-08-01 11:11] VITALS: BP 122/78
== END 2019-08-01 15:36 | disposition home or self-care (01) ==
LOC: SUATTDRO → CDU 12:03 → EMEROOARM 12:03 → SUATTDRO 20:03 → CDU 21:26 → 2NNU 23:31 → 3BNU 07-31 18:08
PROVIDERS: ADMIT Internal Medicine; ATTEND Student in an Organized Health Care Education/Training Program

== ENCOUNTER 2019-10-17 21:30 | Inpatient (IN) ==
[2019-10-17 22:30] LABS: Bacteria,Urine None Seen per hpf (None-Few); Hyaline Casts,Urine None Seen per lpf (None-Few); RBC,Urine 15-30 per hpf (0-3); Squamous Epithelial Cell,Urine Many per lpf (None-Few)
[2019-10-17 22:32] LABS: Bilirubin,Urine Negative (Negative); Blood,Urine Moderate (Negative); Clarity,Urine Clear (Clear); Color,Urine Yellow (Yellow); Glucose,Urine (UA) 500 mg/dL (Normal); Ketones,Urine Negative (Negative); Leukocyte Esterase,Urine Negative (Negative); Nitrite,Urine Negative (Negative); PH,Urine 6.5 pH Units (5.0-8.0); Protein,Urine >=300 mg/dL (Neg-Trace); Urobilinogen,Urine Normal (Normal)
[2019-10-17 23:21] LABS: Basophils % 0.6 %; Eosinophils # 0.2 K/mcL (0.0-0.6); Eosinophils % 2.9 %; Hemoglobin 11.6 g/dL (11.5-15.4); INR 0.9; Immature Granulocytes % 0.9 % (0-4); Lymphocytes # 1.5 K/mcL (0.6-4.6); Lymphocytes % 21.9 %; Mean Corpuscular HGB Conc 33.1 g/dL (31.6-35.5); Mean Corpuscular Hemoglobin 27.9 pg (28.0-33.3); Mean Corpuscular Volume 84.1 fL (83.0-100.0); Mean Platelet Volume 10.2 fL (9.4-12.4); Monocytes # 0.4 K/mcL (0.0-1.3); Monocytes % 5.7 %; Neutrophils # 4.5 K/mcL (1.6-8.9); Platelet Count 277 K/mcL (140-400); Prothrombin Time 10.6 Seconds (9.4-12.1); Red Blood Count 4.16 M/mcL (3.82-4.97); Red Cell Distribution Width 12.3 % (11.5-14.5); White Blood Count 6.7 K/mcL (4.3-11.1)
[2019-10-17 23:24] LABS: Activated Partial Thrombo Time 27.3 Seconds (26.0-36.0)
[2019-10-17 23:43] LABS: Alanine Aminotransferase 16 Units/L (7-52); Albumin 2.6 g/dL (3.5-5.7); Albumin/Globulin Ratio 0.4 (1.1-2.2); Alkaline Phosphatase 138 Units/L (34-104); Aspartate Amino Transferase 22 Units/L (13-39); BUN/Creatinine Ratio 21 (6-26); Bilirubin,Indirect 0.2 mg/dL (0.0-1.0); Bilirubin,Total 0.2 mg/dL (0.3-1.0); Blood Urea Nitrogen 24 mg/dL (6-20); Calcium 9.1 mg/dL (8.6-10.3); Carbon Dioxide 24 mEq/L (23-29); Chloride 97 mEq/L (98-107); Globulin 6.2 g/dL (2.4-3.5); Glucose 533 mg/dL (70-105); Osmolality,Calculated 296 (280-300); Potassium 3.4 mEq/L (3.5-5.1); Sodium 129 mEq/L (136-145); Total Protein 8.8 g/dL (6.4-8.9); eGFR For African Americans > 60 (> 60); eGFR For Non-African Americans 58 (> 60)
[2019-10-18] MEDS ORDERED: Insulin LISPRO 300 UNITS/3 ML VIAL SQ ONE ×2 (00:16→18:47)
[2019-10-18] MEDS ORDERED: Furosemide 40 MG/4 ML VIAL IVP ONE (00:19)
[2019-10-18] MEDS ORDERED: Dextrose Gel 15 GM/37.5 ML TUBE PO PRN ×4 (05:26→11:41)
[2019-10-18] MEDS ORDERED: *HR* Dextrose 50 % in Water (Syg) 50 ML SYRINGE IVP PRN ×2 (05:26→11:41)
[2019-10-18] MEDS ORDERED: Naloxone 0.4 MG/ML INJ IVP PRN (05:26)
[2019-10-18] MEDS ORDERED: D5% in Water 1,000 ML IVC PRN ×2 (05:26→11:41)
[2019-10-18] MEDS ORDERED: Insulin LISPRO 300 UNITS/3 ML VIAL SQ SCH (06:00)
[2019-10-18] MEDS ORDERED: 0.9 % Sodium Chloride 1,000 ML IVC SCH (06:30)
[2019-10-18] MEDS ORDERED: 0.9 % Sodium Chloride 500 ML IVC SCH (06:30)
[2019-10-18 07:57] LABS: Basophils % 0.5 %; Eosinophils # 0.3 K/mcL (0.0-0.6); Hemoglobin 10.4 g/dL (11.5-15.4); Immature Granulocytes % 1.1 % (0-4); Lymphocytes # 1.7 K/mcL (0.6-4.6); Lymphocytes % 23.1 %; Mean Corpuscular HGB Conc 33.5 g/dL (31.6-35.5); Mean Corpuscular Hemoglobin 28.7 pg (28.0-33.3); Mean Corpuscular Volume 85.4 fL (83.0-100.0); Monocytes # 0.5 K/mcL (0.0-1.3); Monocytes % 6.1 %; Neutrophils # 4.9 K/mcL (1.6-8.9); Platelet Count 267 K/mcL (140-400); Red Blood Count 3.63 M/mcL (3.82-4.97); Red Cell Distribution Width 12.5 % (11.5-14.5); Segmented Neutrophils % 65.2 %; White Blood Count 7.5 K/mcL (4.3-11.1)
[2019-10-18] MEDS ORDERED: Nitroglycerin 0.4 MG TAB.SUBL SL PRN (08:11)
[2019-10-18 08:15] LABS: Alanine Aminotransferase 14 Units/L (7-52); Albumin 2.3 g/dL (3.5-5.7); Albumin/Globulin Ratio 0.4 (1.1-2.2); Alkaline Phosphatase 118 Units/L (34-104); Aspartate Amino Transferase 20 Units/L (13-39); BUN/Creatinine Ratio 26 (6-26); Bilirubin,Total 0.2 mg/dL (0.3-1.0); Blood Urea Nitrogen 24 mg/dL (6-20); Calcium 8.6 mg/dL (8.6-10.3); Carbon Dioxide 27 mEq/L (23-29); Chloride 102 mEq/L (98-107); Globulin 5.5 g/dL (2.4-3.5); Glucose 209 mg/dL (70-105); Magnesium 1.8 mg/dL (1.6-2.6); Osmolality,Calculated 288 (280-300); Phosphorous 4.6 mg/dL (2.7-4.5); Potassium 3.2 mEq/L (3.5-5.1); Sodium 134 mEq/L (136-145); Total Protein 7.8 g/dL (6.4-8.9); eGFR For African Americans > 60 (> 60); eGFR For Non-African Americans > 60 (> 60)
[2019-10-18 08:41] LABS: Estimated Average Glucose 484 mg/dl
[2019-10-18] MEDS: Aspirin 81 MG TAB.CHEW PO SCH (10:36)
[2019-10-18] MEDS: hydroCHLOROthiazide 25 MG TABLET PO SCH (10:36)
[2019-10-18] MEDS: Pregabalin 75 MG CAPSULE PO SCH ×3 (10:36→20:23)
[2019-10-18] MEDS: *HR* Ticagrelor 90 MG TABLET PO SCH ×2 (10:36→20:22)
[2019-10-18] MEDS: Isosorbide MONOnitrate (24 HR) 30 MG TAB.ER.24H PO SCH (10:36)
[2019-10-18] MEDS: Insulin LISPRO 300 UNITS/3 ML VIAL SQ SCH ×3 (12:18→20:24)
[2019-10-18 12:37] LABS: Appearance of Peritoneal Fl CLOUDY (Clear)
[2019-10-18 12:43] LABS: RBC,Peritoneal Fluid 0.009 M/mcL
[2019-10-18 13:04] LABS: Total Protein,Peritoneal Fluid 6.5 g/dL
[2019-10-18 14:05] LABS: Basophils,Peritoneal Fluid 0 %
[2019-10-18 16:18] LABS: Protein/Creatinine Ratio,Urine 9.34 mg/mg (0.00-0.20)
[2019-10-18] MEDS ORDERED: cefoTAXime 2,000 MG in 0.9 % Sodium Chloride 100 ML IVPB SCH (19:00)
[2019-10-18] MEDS: Albumin 25% 25gram/100mL 25 GM/100 ML IV.SOLN IVPB SCH (20:22)
[2019-10-18] MEDS: Insulin DETEMIR 100 UNIT/ML X5UNITS SQ SCH (20:23)
[2019-10-18] MEDS ORDERED: Insulin DETEMIR 100 UNIT/ML X5UNITS SQ SCH (21:00)
[2019-10-18] MEDS ORDERED: cefTRIAXone 2,000 MG in Water for inj. (sterile) 20 ML IVP SCH (21:00)
[2019-10-18 21:06] LABS: BUN/Creatinine Ratio 20 (6-26); Blood Urea Nitrogen 25 mg/dL (6-20); Calcium 8.6 mg/dL (8.6-10.3); Carbon Dioxide 25 mEq/L (23-29); Chloride 99 mEq/L (98-107); Glucose 471 mg/dL (70-105); Osmolality,Calculated 297 (280-300); Sodium 131 mEq/L (136-145); eGFR For African Americans > 60 (> 60); eGFR For Non-African Americans 51 (> 60)
[2019-10-19] MEDS ORDERED: cefoTAXime 2,000 MG in 0.9 % Sodium Chloride 100 ML IVPB SCH (06:00)
[2019-10-19 06:02] LABS: Basophils # 0.1 K/mcL (0.0-0.2); Basophils % 0.5 %; Eosinophils # 0.3 K/mcL (0.0-0.6); Eosinophils % 2.5 %; Hematocrit 30.3 % (35.3-44.9); Hemoglobin 9.7 g/dL (11.5-15.4); Immature Granulocytes % 1.2 % (0-4); Lymphocytes # 2.1 K/mcL (0.6-4.6); Lymphocytes % 19.1 %; Mean Corpuscular Hemoglobin 27.7 pg (28.0-33.3); Mean Corpuscular Volume 86.6 fL (83.0-100.0); Mean Platelet Volume 10.2 fL (9.4-12.4); Monocytes # 0.5 K/mcL (0.0-1.3); Monocytes % 4.8 %; Neutrophils # 7.9 K/mcL (1.6-8.9); Platelet Count 344 K/mcL (140-400); Red Cell Distribution Width 12.5 % (11.5-14.5); Segmented Neutrophils % 71.9 %
[2019-10-19 06:14] LABS: BUN/Creatinine Ratio 24 (6-26); Blood Urea Nitrogen 25 mg/dL (6-20); Calcium 9.3 mg/dL (8.6-10.3); Carbon Dioxide 27 mEq/L (23-29); Chloride 101 mEq/L (98-107); Glucose 176 mg/dL (70-105); Magnesium 1.9 mg/dL (1.6-2.6); Osmolality,Calculated 289 (280-300); Phosphorous 4.4 mg/dL (2.7-4.5); Potassium 3.8 mEq/L (3.5-5.1); Sodium 135 mEq/L (136-145); eGFR For African Americans > 60 (> 60); eGFR For Non-African Americans > 60 (> 60)
[2019-10-19] MEDS: Albumin 25% 25gram/100mL 25 GM/100 ML IV.SOLN IVPB SCH (08:33)
[2019-10-19] MEDS: *HR* Ticagrelor 90 MG TABLET PO SCH ×2 (08:40→21:03)
[2019-10-19] MEDS: Isosorbide MONOnitrate (24 HR) 30 MG TAB.ER.24H PO SCH (08:40)
[2019-10-19] MEDS: Aspirin 81 MG TAB.CHEW PO SCH (08:40)
[2019-10-19] MEDS: hydroCHLOROthiazide 25 MG TABLET PO SCH (08:40)
[2019-10-19] MEDS: Pregabalin 75 MG CAPSULE PO SCH ×3 (08:41→21:03)
[2019-10-19] MEDS: Insulin LISPRO 300 UNITS/3 ML VIAL SQ SCH ×4 (08:43→21:03)
[2019-10-19] MEDS: Furosemide 20 MG TABLET PO SCH (12:37)
[2019-10-19] MEDS: Spironolactone 25 MG TABLET PO SCH (12:37)
[2019-10-19] MEDS: cefTRIAXone 1,000 MG in Water for inj. (sterile) 10 ML IVP SCH (12:39)
[2019-10-19] MEDS: *HR* OxyCODONE Immed Rel 5 MG TABLET PO PRN (21:02)
[2019-10-19] MEDS: Insulin DETEMIR 100 UNIT/ML X5UNITS SQ SCH (21:03)
[2019-10-19 23:08] LABS: HCV Quant Log 5.51 log IU/mL
[2019-10-20 03:46] LABS: Basophils # 0.1 K/mcL (0.0-0.2); Basophils % 0.6 %; Eosinophils # 0.1 K/mcL (0.0-0.6); Eosinophils % 1.7 %; Hematocrit 31.3 % (35.3-44.9); Hemoglobin 10.3 g/dL (11.5-15.4); Immature Granulocytes % 1.3 % (0-4); Lymphocytes # 1.6 K/mcL (0.6-4.6); Lymphocytes % 19.2 %; Mean Corpuscular HGB Conc 32.9 g/dL (31.6-35.5); Mean Corpuscular Hemoglobin 28.8 pg (28.0-33.3); Mean Corpuscular Volume 87.4 fL (83.0-100.0); Mean Platelet Volume 10.3 fL (9.4-12.4); Monocytes # 0.6 K/mcL (0.0-1.3); Monocytes % 6.6 %; Neutrophils # 5.9 K/mcL (1.6-8.9); Platelet Count 274 K/mcL (140-400); Red Blood Count 3.58 M/mcL (3.82-4.97); Red Cell Distribution Width 12.2 % (11.5-14.5); Segmented Neutrophils % 70.6 %; White Blood Count 8.3 K/mcL (4.3-11.1)
[2019-10-20 03:51] LABS: BUN/Creatinine Ratio 23 (6-26); Blood Urea Nitrogen 28 mg/dL (6-20); Calcium 8.8 mg/dL (8.6-10.3); Carbon Dioxide 27 mEq/L (23-29); Chloride 101 mEq/L (98-107); Glucose 289 mg/dL (70-105); Magnesium 1.7 mg/dL (1.6-2.6); Osmolality,Calculated 292 (280-300); Phosphorous 4.6 mg/dL (2.7-4.5); Potassium 3.9 mEq/L (3.5-5.1); Sodium 133 mEq/L (136-145); eGFR For African Americans > 60 (> 60); eGFR For Non-African Americans 54 (> 60)
[2019-10-20] MEDS: Insulin LISPRO 300 UNITS/3 ML VIAL SQ SCH ×4 (08:38→20:28)
[2019-10-20] MEDS: cefTRIAXone 1,000 MG in Water for inj. (sterile) 10 ML IVP SCH (08:38)
[2019-10-20] MEDS: Albumin 25% 25gram/100mL 25 GM/100 ML IV.SOLN IVPB SCH (08:39)
[2019-10-20] MEDS: Pregabalin 75 MG CAPSULE PO SCH ×3 (08:40→20:27)
[2019-10-20] MEDS: *HR* Ticagrelor 90 MG TABLET PO SCH ×2 (08:40→20:27)
[2019-10-20] MEDS: Furosemide 20 MG TABLET PO SCH ×2 (08:40→16:18)
[2019-10-20] MEDS: Aspirin 81 MG TAB.CHEW PO SCH (08:40)
[2019-10-20] MEDS: Isosorbide MONOnitrate (24 HR) 30 MG TAB.ER.24H PO SCH (08:40)
[2019-10-20] MEDS: Spironolactone 25 MG TABLET PO SCH (08:40)
[2019-10-20] MEDS ORDERED: Spironolactone 25 MG TABLET PO SCH (09:15)
[2019-10-20] MEDS ORDERED: Spironolactone 25 MG TABLET PO ONE (09:30)
[2019-10-20 10:26] LABS: HCV Quant Interpretation DETECTED (Not Detected)
[2019-10-20] MEDS: *HR* OxyCODONE Immed Rel 5 MG TABLET PO PRN (16:34)
[2019-10-20] MEDS: Insulin DETEMIR 100 UNIT/ML X5UNITS SQ SCH (20:28)
[2019-10-21 05:58] LABS: Hematocrit 31.9 % (35.3-44.9); Hemoglobin 10.1 g/dL (11.5-15.4); Mean Corpuscular HGB Conc 31.7 g/dL (31.6-35.5); Mean Corpuscular Hemoglobin 28.1 pg (28.0-33.3); Mean Corpuscular Volume 88.6 fL (83.0-100.0); Mean Platelet Volume 9.9 fL (9.4-12.4); Platelet Count 302 K/mcL (140-400); Red Cell Distribution Width 12.4 % (11.5-14.5); White Blood Count 8.3 K/mcL (4.3-11.1)
[2019-10-21 06:24] LABS: BUN/Creatinine Ratio 31 (6-26); Blood Urea Nitrogen 38 mg/dL (6-20); Carbon Dioxide 27 mEq/L (23-29); Chloride 102 mEq/L (98-107); Glucose 260 mg/dL (70-105); Osmolality,Calculated 294 (280-300); Potassium 4.1 mEq/L (3.5-5.1); Sodium 133 mEq/L (136-145); eGFR For African Americans > 60 (> 60); eGFR For Non-African Americans 53 (> 60)
[2019-10-21] MEDS: Aspirin 81 MG TAB.CHEW PO SCH (08:24)
[2019-10-21] MEDS: Spironolactone 25 MG TABLET PO SCH (08:24)
[2019-10-21] MEDS: Furosemide 20 MG TABLET PO SCH ×2 (08:25→16:14)
[2019-10-21] MEDS: *HR* Ticagrelor 90 MG TABLET PO SCH ×2 (08:25→20:20)
[2019-10-21] MEDS: Insulin LISPRO 300 UNITS/3 ML VIAL SQ SCH ×4 (08:25→20:20)
[2019-10-21] MEDS: Pregabalin 75 MG CAPSULE PO SCH ×3 (08:25→20:20)
[2019-10-21] MEDS: Albumin 25% 25gram/100mL 25 GM/100 ML IV.SOLN IVPB SCH (08:26)
[2019-10-21] MEDS: cefTRIAXone 1,000 MG in Water for inj. (sterile) 10 ML IVP SCH (08:26)
[2019-10-21] MEDS: *HR* OxyCODONE Immed Rel 5 MG TABLET PO PRN (08:37)
[2019-10-21 09:27] LABS: ANA IgG by ELISA NONE DETECTED (None Detected); F-Actin (sm muscle) Ab IgG 38 Units (0-19)
[2019-10-21 09:44] LABS: AFP Tumor Marker Non-Pregnant 2 ng/mL (0-9)
[2019-10-21] MEDS: Insulin DETEMIR 100 UNIT/ML X5UNITS SQ SCH (20:21)
[2019-10-21] MEDS ORDERED: *HR* OxyCODONE Immed Rel 5 MG TABLET PO PRN (20:30)
[2019-10-22 04:42] LABS: Hematocrit 33.6 % (35.3-44.9); Hemoglobin 10.7 g/dL (11.5-15.4); Mean Corpuscular HGB Conc 31.8 g/dL (31.6-35.5); Mean Corpuscular Hemoglobin 28.4 pg (28.0-33.3); Mean Corpuscular Volume 89.1 fL (83.0-100.0); Mean Platelet Volume 9.9 fL (9.4-12.4); Platelet Count 320 K/mcL (140-400); Red Blood Count 3.77 M/mcL (3.82-4.97); Red Cell Distribution Width 12.5 % (11.5-14.5); White Blood Count 8.7 K/mcL (4.3-11.1)
[2019-10-22 04:58] LABS: Calcium 9.6 mg/dL (8.6-10.3); Potassium 4.2 mEq/L (3.5-5.1)
[2019-10-22 05:29] LABS: Complement C3 172 mg/dL (87-200)
[2019-10-22 08:00] LABS: Serine Protease-3 Antibody 2 AU/mL (0-19); Smooth Muscle Ab Titer IgG 1:40 (<1:20)
[2019-10-22 08:02] LABS: HCV Quant Interpretation DETECTED (Not Detected); HCV Quant Log 5.47 log IU/mL
[2019-10-22] MEDS ORDERED: Furosemide 20 MG TABLET PO SCH (09:00)
[2019-10-22] MEDS: Spironolactone 25 MG TABLET PO SCH (09:56)
[2019-10-22] MEDS: Aspirin 81 MG TAB.CHEW PO SCH (09:56)
[2019-10-22] MEDS: *HR* Ticagrelor 90 MG TABLET PO SCH (09:56)
[2019-10-22] MEDS: Pregabalin 75 MG CAPSULE PO SCH (09:56)
[2019-10-22] MEDS: Insulin LISPRO 300 UNITS/3 ML VIAL SQ SCH ×2 (09:59→12:29)
[2019-10-22] MEDS: cefTRIAXone 1,000 MG in Water for inj. (sterile) 10 ML IVP SCH (10:00)
[2019-10-22 11:59] VITALS: BP 112/78
[2019-10-24 08:18] LABS: Fluid Source for Albumin PERITONEAL
[2019-10-24 10:32] LABS: HCV Genotype by Sequencing 1A OR 1B
[2019-10-26 03:46] LABS: Alpha 2 Globulin (PEP) 1.24 g/dL (0.48-1.05); Beta Globulin (PEP) 0.73 g/dL (0.48-1.10)
[2019-10-26 09:32] LABS: GBM IgG Multiplex Bead Assay 0 AU/mL (0-19); Glomerular Basement Memb IgG NEGATIVE (Negative)
[2019-10-26 09:40] LABS: IFE Reflexed NOT DONE
== END 2019-10-22 13:27 | disposition home or self-care (01) | DRG 420 ==
LOC: 3BNU 21:30 → EMEROOARM 21:30 → SUATTDRO 10-18 01:15 → 3BNU 10-18 02:01
PROVIDERS: ADMIT Internal Medicine; ATTEND Internal Medicine

== ENCOUNTER 2020-10-19 09:51 | Inpatient (IN) ==
[2020-10-19] MEDS ORDERED: *HR* Metoprolol 5 MG/5 ML VIAL IVP ONE ×3 (10:00→21:45)
[2020-10-19] MEDS ORDERED: Nitroglycerin 0.4 MG TAB.SUBL SL PRN ×2 (10:00→17:18)
[2020-10-19] MEDS ORDERED: Aspirin 81 MG TAB.CHEW PO ONE (10:00)
[2020-10-19] MEDS ORDERED: Ondansetron 4 MG/2 ML VIAL IVP ONE (10:08)
[2020-10-19] MEDS ORDERED: 0.9 % Sodium Chloride 1,000 ML IVC ONE ×2 (10:09→11:14)
[2020-10-19 10:17] LABS: Basophils # 0.1 K/mcL (0.0-0.2); Basophils % 0.5 %; Eosinophils # 0.1 K/mcL (0.0-0.6); Eosinophils % 1.3 %; Hematocrit 36.4 % (35.3-44.9); Hemoglobin 12.6 g/dL (11.5-15.4); Immature Granulocytes % 0.4 % (0-4); Lymphocytes # 1.1 K/mcL (0.6-4.6); Lymphocytes % 11.2 %; Mean Corpuscular HGB Conc 34.6 g/dL (31.6-35.5); Mean Corpuscular Hemoglobin 30.3 pg (28.0-33.3); Mean Corpuscular Volume 87.5 fL (83.0-100.0); Mean Platelet Volume 11.2 fL (9.4-12.4); Monocytes # 0.5 K/mcL (0.0-1.3); Monocytes % 5.3 %; Neutrophils # 8.1 K/mcL (1.6-8.9); Platelet Count 164 K/mcL (140-400); Red Blood Count 4.16 M/mcL (3.82-4.97); Red Cell Distribution Width 12.3 % (11.5-14.5); Segmented Neutrophils % 81.3 %
[2020-10-19 10:42] LABS: INR 0.8; Prothrombin Time 9.3 Seconds (9.4-12.1)
[2020-10-19 10:44] LABS: Activated Partial Thrombo Time 24.3 Seconds (26.0-36.0)
[2020-10-19 11:04] LABS: Alanine Aminotransferase 100 Units/L (7-52); Albumin 3.6 g/dL (3.5-5.7); Albumin/Globulin Ratio 0.9 (1.1-2.2); Alkaline Phosphatase 215 Units/L (34-104); Amylase 50 Units/L (29-103); Aspartate Amino Transferase 58 Units/L (13-39); BUN/Creatinine Ratio 22 (6-26); Bilirubin,Direct 0.1 mg/dL (0.0-0.2); Bilirubin,Indirect 0.3 mg/dL (0.0-1.0); Bilirubin,Total 0.4 mg/dL (0.3-1.0); Blood Urea Nitrogen 21 mg/dL (6-20); Calcium 10.2 mg/dL (8.6-10.3); Carbon Dioxide 23 mEq/L (23-29); Chloride 97 mEq/L (98-107); Globulin 3.8 g/dL (2.4-3.5); Glucose 923 mg/dL (70-105); Lipase 102 Units/L (11-82); Osmolality,Calculated 321 (280-300); Potassium 4.1 mEq/L (3.5-5.1); Sodium 131 mEq/L (136-145); Total Protein 7.4 g/dL (6.4-8.9); Troponin I < 0.03 ng/mL (< 0.04); eGFR For African Americans > 60 (> 60); eGFR For Non-African Americans > 60 (> 60)
[2020-10-19] MEDS ORDERED: *HR* Promethazine 25 MG/ML VIAL IM ONE (11:13)
[2020-10-19] MEDS ORDERED: Insulin Human Regular 10 UNIT in 0.9 % Sodium Chloride 10 ML IV ONE (11:13)
[2020-10-19] MEDS ORDERED: Isovue-370 500 ML BOTTLE IVP ONE (11:14)
[2020-10-19] MEDS ORDERED: Insulin Regular, Human 100 UNIT/ML IV PRN (11:36)
[2020-10-19] MEDS ORDERED: *HR* Dextrose 50 % in Water (Vial) 50 ML VIAL IVP PRN (11:36)
[2020-10-19] MEDS ORDERED: D5% in 0.45% NACL 1,000 ML IVC PRN (11:36)
[2020-10-19] MEDS ORDERED: Naloxone 0.4 MG/ML INJ IVP PRN (11:36)
[2020-10-19] MEDS ORDERED: Acetaminophen 325 MG TABLET PO PRN (11:36)
[2020-10-19] MEDS ORDERED: 0.9 % Sodium Chloride 1,000 ML IVC SCH (11:45)
[2020-10-19] MEDS ORDERED: 0.45 % Sodium Chloride w/KCl 20 MEQ/1,000 ML MLS IVC SCH ×2 (11:45→17:45)
[2020-10-19 12:01] LABS: Bilirubin,Urine Negative (Negative); Blood,Urine Trace (Negative); Clarity,Urine Clear (Clear); Color,Urine Colorless (Yellow); Glucose,Urine (UA) >=1000 mg/dL (Normal); Ketones,Urine 10 mg/dL (Negative); Leukocyte Esterase,Urine Negative (Negative); Nitrite,Urine Negative (Negative); PH,Urine 6.5 pH Units (5.0-8.0); Protein,Urine 200 mg/dL (Neg-Trace); RBC,Urine 0-3 per hpf (0-3); Specific Gravity,Urine 1.028 (1.010-1.025); Squamous Epithelial Cell,Urine Few per hpf (None-Few); Urobilinogen,Urine Normal (Normal); WBC,Urine 0-3 per hpf (0-3)
[2020-10-19 12:32] LABS: VBG HCO3 26 mEq/L (21-27); VBG PCO2 52 mmHg (41-51); VBG PH 7.31 pH Units (7.32-7.42); VBG PO2 121 mmHg (25-50)
[2020-10-19] MEDS ORDERED: cefTRIAXone 1,000 MG in Water for inj. (sterile) 10 ML IVP ONE (12:56)
[2020-10-19] MEDS ORDERED: Azithromycin 500 MG in 0.9 % Sodium Chloride 250 ML IVPB ONE (12:57)
[2020-10-19 14:20] LABS: Adenovirus Not Detected (Not Detect); Bordetella Pertussis Not Detected (Not Detect); Chlamydophila pneumoniae Not Detected (Not Detect); Coronavirus 229E Not Detected (Not Detect); Coronavirus HKU1 Not Detected (Not Detect); Coronavirus NL63 Not Detected (Not Detect); Coronavirus OC43 Not Detected (Not Detect); Human Metapneumovirus Not Detected (Not Detect); Human Rhinovirus/Enterovirus Not Detected (Not Detect); Influenza A Subtype 2009 H1 Not Detected (Not Detect); Influenza B Not Detected (Not Detect); Mycoplasma pneumoniae Not Detected (Not Detect); Parainfluenza Virus 1 Not Detected (Not Detect); Parainfluenza Virus 2 Not Detected (Not Detect); Parainfluenza Virus 3 Not Detected (Not Detect); Parainfluenza Virus 4 Not Detected (Not Detect); Respiratory Syncytial Virus Not Detected (Not Detect); SARS-CoV-2 Not Detected (Not Detect)
[2020-10-19] MEDS: Insulin Human Regular 100 UNIT in 0.9 % Sodium Chloride 100 ML IVC SCH ×4 (14:24→18:30)
[2020-10-19] MEDS ORDERED: Prochlorperazine 10 MG/2 ML VIAL IVP PRN (17:16)
[2020-10-19 17:48] LABS: BUN/Creatinine Ratio 27 (6-26); Blood Urea Nitrogen 19 mg/dL (6-20); Calcium 9.4 mg/dL (8.6-10.3); Carbon Dioxide 24 mEq/L (23-29); Chloride 110 mEq/L (98-107); Glucose 339 mg/dL (70-105); Osmolality,Calculated 308 (280-300); Potassium 3.7 mEq/L (3.5-5.1); Sodium 141 mEq/L (136-145); eGFR For African Americans > 60 (> 60); eGFR For Non-African Americans > 60 (> 60)
[2020-10-19 19:14] LABS: Troponin I < 0.03 ng/mL (< 0.04)
[2020-10-19] MEDS ORDERED: Dextrose Gel 15 GM/37.5 ML TUBE PO PRN ×2 (20:28)
[2020-10-19] MEDS ORDERED: D5% in Water 1,000 ML IVC PRN (20:28)
[2020-10-19] MEDS ORDERED: Insulin DETEMIR 100 UNIT/ML X5UNITS SUBQ SCH (21:00)
[2020-10-19] MEDS ORDERED: Pregabalin 75 MG CAPSULE PO SCH (21:00)
[2020-10-19] MEDS ORDERED: *HR* Ticagrelor 90 MG TABLET PO SCH (21:00)
[2020-10-20] MEDS ORDERED: Insulin LISPRO 300 UNITS/3 ML VIAL SUBQ SCH
[2020-10-20] MEDS ORDERED: Dextrose Gel 15 GM/37.5 ML TUBE PO PRN ×2 (00:06)
[2020-10-20] MEDS ORDERED: Naloxone 0.4 MG/ML INJ IVP PRN (00:06)
[2020-10-20] MEDS ORDERED: *HR* Dextrose 50 % in Water (Vial) 50 ML VIAL IVP PRN (00:06)
[2020-10-20] MEDS ORDERED: D5% in 0.45% NACL 1,000 ML IVC PRN (00:06)
[2020-10-20] MEDS ORDERED: D5% in Water 1,000 ML IVC PRN (00:06)
[2020-10-20] MEDS ORDERED: Nitroglycerin 0.4 MG TAB.SUBL SL PRN (00:06)
[2020-10-20] MEDS ORDERED: Acetaminophen 325 MG TABLET PO PRN (00:06)
[2020-10-20] MEDS ORDERED: Prochlorperazine 10 MG/2 ML VIAL IVP PRN (00:06)
[2020-10-20] MEDS: 0.45 % Sodium Chloride w/KCl 20 MEQ/1,000 ML MLS IVC SCH ×2 (00:29→06:06)
[2020-10-20] MEDS ORDERED: Ringers Solution, Lactated 1,000 ML ONE (00:53)
[2020-10-20] MEDS ORDERED: Ketorolac 30 MG/ML VIAL IVP PRN (00:57)
[2020-10-20] MEDS: Ringers Solution, Lactated 1,000 ML IVC SCH ×3 (01:08→20:35)
[2020-10-20] MEDS: Insulin LISPRO 300 UNITS/3 ML VIAL SUBQ SCH ×6 (01:21→20:36)
[2020-10-20] MEDS ORDERED: *HR* Promethazine 25 MG/ML VIAL IM ONE ×2 (03:53→09:09)
[2020-10-20 03:56] LABS: Basophils % 0.2 %; Hematocrit 36.7 % (35.3-44.9); Hemoglobin 12.7 g/dL (11.5-15.4); Immature Granulocytes % 0.4 % (0-4); Lymphocytes # 1.7 K/mcL (0.6-4.6); Mean Corpuscular HGB Conc 34.6 g/dL (31.6-35.5); Mean Corpuscular Volume 86.8 fL (83.0-100.0); Monocytes # 0.5 K/mcL (0.0-1.3); Monocytes % 3.2 %; Neutrophils # 14.2 K/mcL (1.6-8.9); Platelet Count 213 K/mcL (140-400); Red Blood Count 4.23 M/mcL (3.82-4.97); Red Cell Distribution Width 13.1 % (11.5-14.5); Segmented Neutrophils % 86.2 %; White Blood Count 16.5 K/mcL (4.3-11.1)
[2020-10-20] MEDS ORDERED: *HR* HYDROmorphone (PF) 1 MG/ML SYRINGE IVP PRN ×2 (03:56→08:35)
[2020-10-20 04:15] LABS: Alanine Aminotransferase 75 Units/L (7-52); Albumin 3.1 g/dL (3.5-5.7); Albumin/Globulin Ratio 0.9 (1.1-2.2); Alkaline Phosphatase 182 Units/L (34-104); Aspartate Amino Transferase 41 Units/L (13-39); BUN/Creatinine Ratio 28 (6-26); Bilirubin,Total 0.3 mg/dL (0.3-1.0); Blood Urea Nitrogen 25 mg/dL (6-20); Calcium 9.3 mg/dL (8.6-10.3); Carbon Dioxide 27 mEq/L (23-29); Chloride 110 mEq/L (98-107); Globulin 3.6 g/dL (2.4-3.5); Glucose 208 mg/dL (70-105); Osmolality,Calculated 310 (280-300); Phosphorous 3.6 mg/dL (2.7-4.5); Potassium 3.9 mEq/L (3.5-5.1); Sodium 145 mEq/L (136-145); Total Protein 6.7 g/dL (6.4-8.9); eGFR For African Americans > 60 (> 60); eGFR For Non-African Americans > 60 (> 60)
[2020-10-20] MEDS ORDERED: *HR* Enoxaparin 40 MG/0.4 ML SYRINGE SQ SCH (06:00)
[2020-10-20] MEDS: *HR* Enoxaparin 40 MG/0.4 ML SYRINGE SQ SCH (06:05)
[2020-10-20] MEDS ORDERED: cefTRIAXone 1,000 MG in 0.9 % Sodium Chloride Mini Bag 100 ML IVP SCH (09:00)
[2020-10-20] MEDS ORDERED: lisinopriL 10 MG TABLET PO SCH (09:00)
[2020-10-20] MEDS ORDERED: Aspirin 81 MG TAB.CHEW PO SCH (09:00)
[2020-10-20] MEDS ORDERED: Perflutren Lipid Microsphere 1.3 ML in 0.9 % Sodium Chloride 8.7 ML IVP PRN (09:23)
[2020-10-20] MEDS: cefTRIAXone 1,000 MG in 0.9 % Sodium Chloride Mini Bag 100 ML IVP SCH (09:32)
[2020-10-20 09:47] LABS: Estimated Average Glucose 315 mg/dl; Hemoglobin A1C 12.6 %
[2020-10-20] MEDS: *HR* Ticagrelor 90 MG TABLET PO SCH ×2 (11:25→20:37)
[2020-10-20] MEDS: Aspirin 81 MG TAB.CHEW PO SCH (11:25)
[2020-10-20] MEDS: Pregabalin 75 MG CAPSULE PO SCH ×2 (11:27→20:37)
[2020-10-20] MEDS: lisinopriL 10 MG TABLET PO SCH (11:28)
[2020-10-20] MEDS: Metoclopramide 10 MG/2 ML VIAL IVP PRN ×2 (11:50→20:55)
[2020-10-20] MEDS: *HR* HYDROmorphone (PF) 1 MG/ML SYRINGE IVP PRN ×2 (12:55→17:34)
[2020-10-20] MEDS ORDERED: *HR* Metoprolol 5 MG/5 ML VIAL IVP PRN (13:01)
[2020-10-20] MEDS: Pantoprazole 40 MG VIAL IVP SCH (13:53)
[2020-10-20] MEDS ORDERED: Azithromycin 500 MG in 0.9 % Sodium Chloride 250 ML IVPB SCH (17:00)
[2020-10-20] MEDS: Azithromycin 500 MG in 0.9 % Sodium Chloride 250 ML IVPB SCH (17:31)
[2020-10-20] MEDS ORDERED: Insulin DETEMIR 100 UNIT/ML X5UNITS SUBQ SCH (21:00)
[2020-10-20] MEDS ORDERED: PREGABALIN 225 MG PO SCH (21:00)
[2020-10-21] MEDS: Insulin LISPRO 300 UNITS/3 ML VIAL SUBQ SCH ×5 (01:00→16:58)
[2020-10-21 01:20] LABS: Basophils % 0.3 %; Eosinophils # 0.1 K/mcL (0.0-0.6); Eosinophils % 0.7 %; Hematocrit 30.4 % (35.3-44.9); Immature Granulocytes % 0.3 % (0-4); Lymphocytes # 2.8 K/mcL (0.6-4.6); Lymphocytes % 26.8 %; Mean Corpuscular HGB Conc 33.6 g/dL (31.6-35.5); Mean Corpuscular Volume 89.4 fL (83.0-100.0); Mean Platelet Volume 10.8 fL (9.4-12.4); Monocytes # 0.7 K/mcL (0.0-1.3); Monocytes % 6.4 %; Neutrophils # 6.8 K/mcL (1.6-8.9); Platelet Count 173 K/mcL (140-400); Red Cell Distribution Width 13.2 % (11.5-14.5); Segmented Neutrophils % 65.5 %; White Blood Count 10.4 K/mcL (4.3-11.1)
[2020-10-21 01:22] LABS: Hemoglobin 10.2 g/dL (11.5-15.4); INR 1.1; Prothrombin Time 12.4 Seconds (9.4-12.1)
[2020-10-21 01:40] LABS: Alanine Aminotransferase 52 Units/L (7-52); Albumin 2.5 g/dL (3.5-5.7); Albumin/Globulin Ratio 0.9 (1.1-2.2); Alkaline Phosphatase 126 Units/L (34-104); Aspartate Amino Transferase 33 Units/L (13-39); BUN/Creatinine Ratio 26 (6-26); Bilirubin,Direct 0.1 mg/dL (0.0-0.2); Bilirubin,Indirect 0.3 mg/dL (0.0-1.0); Bilirubin,Total 0.4 mg/dL (0.3-1.0); Blood Urea Nitrogen 25 mg/dL (6-20); Calcium 8.3 mg/dL (8.6-10.3); Carbon Dioxide 31 mEq/L (23-29); Chloride 108 mEq/L (98-107); Globulin 2.7 g/dL (2.4-3.5); Glucose 86 mg/dL (70-105); Magnesium 1.9 mg/dL (1.6-2.6); Osmolality,Calculated 304 (280-300); Potassium 3.4 mEq/L (3.5-5.1); Sodium 145 mEq/L (136-145); Total Protein 5.2 g/dL (6.4-8.9); eGFR For African Americans > 60 (> 60); eGFR For Non-African Americans > 60 (> 60)
[2020-10-21] MEDS: Ringers Solution, Lactated 1,000 ML IVC SCH ×3 (04:30→14:24)
[2020-10-21] MEDS: *HR* Enoxaparin 40 MG/0.4 ML SYRINGE SQ SCH (06:15)
[2020-10-21] MEDS ORDERED: Potassium Chloride 40 MEQ, Lidocaine 1% 2 ML in 0.9 % Sodium Chloride 500 ML IVPB ONE (07:56)
[2020-10-21] MEDS: Aspirin 81 MG TAB.CHEW PO SCH (08:46)
[2020-10-21] MEDS: Pregabalin 75 MG CAPSULE PO SCH (08:46)
[2020-10-21] MEDS: Pantoprazole 40 MG VIAL IVP SCH (08:47)
[2020-10-21] MEDS: cefTRIAXone 1,000 MG in 0.9 % Sodium Chloride Mini Bag 100 ML IVP SCH (08:47)
[2020-10-21] MEDS: *HR* Ticagrelor 90 MG TABLET PO SCH (08:47)
[2020-10-21] MEDS: lisinopriL 10 MG TABLET PO SCH (08:51)
[2020-10-21] MEDS ORDERED: Lidocaine -MPF 2% 2 ML VIAL ONE (12:34)
[2020-10-21] MEDS ORDERED: *HR* Propofol 200 MG/20 ML VIAL IVP ONE ×2 (12:34→12:58)
[2020-10-21 14:53] VITALS: BP 153/97
[2020-10-21] MEDS: Azithromycin 500 MG in 0.9 % Sodium Chloride 250 ML IVPB SCH (16:58)
[2020-10-21] MEDS ORDERED: *HR* Ticagrelor 90 MG TABLET PO SCH (21:00)
== END 2020-10-21 18:25 | disposition left against medical advice (07) | DRG 48 ==
LOC: EMEROOARM 09:51 → INTOOBSV 15:32 → ICNU 15:32 → SUATTDRO 15:32 → ICNU 16:10 → 2NNU 10-20 07:05
PROVIDERS: ADMIT Family Medicine; ATTEND Internal Medicine
PROC: ENDOEBX (2020-10-21 12:55)

== ENCOUNTER 2021-04-30 19:37 | Observation (INO) ==
[2021-04-30 21:08] LABS: Basophils % 0.5 %; Eosinophils # 0.1 K/mcL (0.0-0.6); Eosinophils % 1.9 %; Hematocrit 30.1 % (35.3-44.9); Hemoglobin 10.5 g/dL (11.5-15.4); Immature Granulocytes % 0.5 % (0-4); Lymphocytes # 1.1 K/mcL (0.6-4.6); Lymphocytes % 25.8 %; Mean Corpuscular HGB Conc 34.9 g/dL (31.6-35.5); Mean Corpuscular Hemoglobin 30.4 pg (28.0-33.3); Mean Corpuscular Volume 87.2 fL (83.0-100.0); Mean Platelet Volume 11.4 fL (9.4-12.4); Monocytes # 0.4 K/mcL (0.0-1.3); Monocytes % 9.2 %; Neutrophils # 2.7 K/mcL (1.6-8.9); Platelet Count 142 K/mcL (140-400); Red Blood Count 3.45 M/mcL (3.82-4.97); Red Cell Distribution Width 12.1 % (11.5-14.5); Segmented Neutrophils % 62.1 %; White Blood Count 4.3 K/mcL (4.3-11.1)
[2021-04-30 21:34] LABS: Albumin 2.9 g/dL (3.5-5.7); Albumin/Globulin Ratio 0.9 (1.1-2.2); Bilirubin,Indirect 0.3 mg/dL (0.0-1.0); Bilirubin,Total 0.3 mg/dL (0.3-1.0); Calcium 8.5 mg/dL (8.6-10.3); Globulin 3.2 g/dL (2.4-3.5); Potassium 4.1 mEq/L (3.5-5.1); Total Protein 6.1 g/dL (6.4-8.9)
[2021-04-30] MEDS ORDERED: 0.9 % Sodium Chloride 1,000 ML IVC ONE (21:54)
[2021-04-30 22:02] LABS: Adenovirus Not Detected (Not Detect); Bordetella Pertussis Not Detected (Not Detect); Chlamydophila pneumoniae Not Detected (Not Detect); Coronavirus 229E Not Detected (Not Detect); Coronavirus HKU1 Not Detected (Not Detect); Coronavirus NL63 Not Detected (Not Detect); Coronavirus OC43 Not Detected (Not Detect); Human Metapneumovirus Not Detected (Not Detect); Human Rhinovirus/Enterovirus Not Detected (Not Detect); Influenza A Subtype 2009 H1 Not Detected (Not Detect); Influenza B Not Detected (Not Detect); Mycoplasma pneumoniae Not Detected (Not Detect); Parainfluenza Virus 1 Not Detected (Not Detect); Parainfluenza Virus 2 Not Detected (Not Detect); Parainfluenza Virus 3 Not Detected (Not Detect); Parainfluenza Virus 4 Not Detected (Not Detect); Respiratory Syncytial Virus Not Detected (Not Detect)
[2021-04-30 22:04] LABS: SARS-CoV-2 DETECTED (Not Detect)
[2021-04-30] MEDS ORDERED: *HR* Dextrose 50 % in Water (Vial) 50 ML VIAL IVP PRN (22:46)
[2021-04-30] MEDS ORDERED: Benzonatate 100 MG CAPSULE PO PRN (22:56)
[2021-04-30] MEDS ORDERED: Naloxone 0.4 MG/ML INJ IVP PRN (22:57)
[2021-04-30] MEDS ORDERED: Ondansetron 4 MG/2 ML VIAL IVP PRN (22:57)
[2021-04-30] MEDS ORDERED: Melatonin 3 MG TABLET PO PRN (22:57)
[2021-05-01 00:07] LABS: Basophils % 0.5 %; Eosinophils # 0.1 K/mcL (0.0-0.6); Eosinophils % 3.2 %; Hematocrit 29.7 % (35.3-44.9); Hemoglobin 10.4 g/dL (11.5-15.4); Immature Granulocytes % 0.5 % (0-4); Lymphocytes # 1.2 K/mcL (0.6-4.6); Lymphocytes % 31.3 %; Mean Corpuscular Hemoglobin 30.1 pg (28.0-33.3); Mean Corpuscular Volume 86.1 fL (83.0-100.0); Mean Platelet Volume 11.5 fL (9.4-12.4); Monocytes # 0.2 K/mcL (0.0-1.3); Monocytes % 5.6 %; Neutrophils # 2.2 K/mcL (1.6-8.9); Platelet Count 129 K/mcL (140-400); Red Blood Count 3.45 M/mcL (3.82-4.97); Red Cell Distribution Width 12.2 % (11.5-14.5); Segmented Neutrophils % 58.9 %; White Blood Count 3.8 K/mcL (4.3-11.1)
[2021-05-01 00:13] LABS: Albumin 2.7 g/dL (3.5-5.7); Albumin/Globulin Ratio 0.9 (1.1-2.2); Bilirubin,Total 0.2 mg/dL (0.3-1.0); Calcium 8.3 mg/dL (8.6-10.3); Globulin 3.1 g/dL (2.4-3.5); Potassium 3.2 mEq/L (3.5-5.1); Total Protein 5.8 g/dL (6.4-8.9); Troponin I 0.03 ng/mL (< 0.04)
[2021-05-01] MEDS: Ipratropium 1 PUFF INHALER IH SCH ×6 (04:04→20:20)
[2021-05-01] MEDS ORDERED: Insulin DETEMIR 100 UNIT/ML X5UNITS SUBQ SCH ×3 (05:20→21:00)
[2021-05-01] MEDS ORDERED: D5% in 0.45% NACL w KCl 20 MEQ/1,000 ML MLS IVC SCH (05:30)
[2021-05-01] MEDS ORDERED: *HR* Enoxaparin 40 MG/0.4 ML SYRINGE SQ SCH (06:00)
[2021-05-01] MEDS ORDERED: Furosemide 40 MG TABLET PO SCH (08:00)
[2021-05-01] MEDS: Acetaminophen 325 MG TABLET PO PRN ×2 (09:48→17:16)
[2021-05-01] MEDS: *HR* Ticagrelor 90 MG TABLET PO SCH ×2 (09:48→21:21)
[2021-05-01] MEDS: Pregabalin 75 MG CAPSULE PO SCH ×2 (09:48→21:21)
[2021-05-01 11:14] VITALS: TEMP 98.6
[2021-05-01 16:14] VITALS: BP 154/97; PULSE 113
[2021-05-01] MEDS ORDERED: Insulin LISPRO 300 UNITS/3 ML VIAL SUBQ SCH ×2 (16:30→17:00)
[2021-05-01 16:59] LABS: Basophils % 0.4 %; Eosinophils # 0.1 K/mcL (0.0-0.6); Eosinophils % 2.2 %; Hematocrit 35.2 % (35.3-44.9); Hemoglobin 11.9 g/dL (11.5-15.4); Immature Granulocytes % 0.6 % (0-4); Lymphocytes # 0.9 K/mcL (0.6-4.6); Lymphocytes % 19.2 %; Mean Corpuscular HGB Conc 33.8 g/dL (31.6-35.5); Mean Corpuscular Hemoglobin 29.2 pg (28.0-33.3); Mean Corpuscular Volume 86.5 fL (83.0-100.0); Monocytes # 0.4 K/mcL (0.0-1.3); Monocytes % 7.1 %; Neutrophils # 3.5 K/mcL (1.6-8.9); Platelet Count 142 K/mcL (140-400); Red Blood Count 4.07 M/mcL (3.82-4.97); Red Cell Distribution Width 12.2 % (11.5-14.5); Segmented Neutrophils % 70.5 %; White Blood Count 4.9 K/mcL (4.3-11.1)
[2021-05-01 17:23] LABS: Alanine Aminotransferase 30 Units/L (7-52); Albumin 2.8 g/dL (3.5-5.7); Albumin/Globulin Ratio 0.8 (1.1-2.2); Alkaline Phosphatase 146 Units/L (34-104); Aspartate Amino Transferase 35 Units/L (13-39); BUN/Creatinine Ratio 28 (6-26); Bilirubin,Total 0.2 mg/dL (0.3-1.0); Blood Urea Nitrogen 30 mg/dL (6-20); Calcium 8.4 mg/dL (8.6-10.3); Carbon Dioxide 24 mEq/L (23-29); Chloride 102 mEq/L (98-107); Globulin 3.6 g/dL (2.4-3.5); Glucose 363 mg/dL (70-105); Magnesium 1.8 mg/dL (1.6-2.6); Osmolality,Calculated 295 (280-300); Phosphorous 3.1 mg/dL (2.7-4.5); Sodium 132 mEq/L (136-145); Total Protein 6.4 g/dL (6.4-8.9); eGFR For African Americans > 60 (> 60); eGFR For Non-African Americans > 60 (> 60)
[2021-05-01 17:29] LABS: Platelet Estimate Normal (Normal); Reactive Lymphocytes Present (Not Present)
[2021-05-01] MEDS ORDERED: Saliva Stimulant 44.3ml BOTTLE PO PRN (18:31)
[2021-05-01] MEDS ORDERED: Chlorhexidine Rinse 15 ML MOUTHWASH MM SCH (21:00)
[2021-05-01 23:28] VITALS: O2SAT 91
[2021-05-02 00:49] LABS: Hemoglobin A1C > 18.7 %
[2021-05-02] MEDS ORDERED: Insulin LISPRO 300 UNITS/3 ML VIAL SUBQ SCH (08:00)
[2021-05-02] MEDS ORDERED: Cholecalciferol (D-3) 1,000 UNIT (25MCG) TABLET PO SCH (09:00)
[2021-05-02] MEDS ORDERED: Multivit/Ca/Min/Fe/FA 1 TAB TABLET PO SCH (09:00)
== END 2021-05-01 21:50 | disposition left against medical advice (07) ==
LOC: 2NENU 19:37 → EMEROOARM 19:37 → SUATTDRO 05-01 00:10 → 2NENU 05-01 00:52
PROVIDERS: ADMIT Internal Medicine; ATTEND Internal Medicine

== ENCOUNTER 2022-03-20 08:44 | Observation (INO) ==
[2022-03-20] MEDS ORDERED: Ondansetron 4 MG/2 ML VIAL IVP ONE (08:59)
[2022-03-20] MEDS ORDERED: 0.9 % Sodium Chloride 1,000 ML IVC ONE ×2 (08:59→11:24)
[2022-03-20 09:24] LABS: Basophils % 0.6 %; Eosinophils # 0.1 K/mcL (0.0-0.6); Eosinophils % 2.1 %; Hematocrit 40.6 % (35.3-44.9); Immature Granulocytes % 0.5 % (0-4); Lymphocytes # 1.5 K/mcL (0.6-4.6); Lymphocytes % 22.9 %; Mean Corpuscular HGB Conc 34.5 g/dL (31.6-35.5); Mean Corpuscular Hemoglobin 28.6 pg (28.0-33.3); Mean Corpuscular Volume 82.9 fL (83.0-100.0); Mean Platelet Volume 11.2 fL (9.4-12.4); Monocytes # 0.3 K/mcL (0.0-1.3); Monocytes % 4.4 %; Neutrophils # 4.4 K/mcL (1.6-8.9); Platelet Count 221 K/mcL (140-400); Red Cell Distribution Width 13.2 % (11.5-14.5); Segmented Neutrophils % 69.5 %; White Blood Count 6.3 K/mcL (4.3-11.1)
[2022-03-20 10:23] LABS: Bilirubin,Urine Negative (Negative); Blood,Urine Small (Negative); Clarity,Urine Clear (Clear); Color,Urine Light-Yellow (Yellow); Glucose,Urine (UA) >=1000 mg/dL (Normal); Ketones,Urine 10 mg/dL (Negative); Leukocyte Esterase,Urine Negative (Negative); Mucus,Urine Few per lpf (None-Few); Nitrite,Urine Negative (Negative); Protein,Urine >=600 mg/dL (Neg-Trace); RBC,Urine 0-3 per hpf (0-3); Specific Gravity,Urine 1.025 (1.010-1.025); Urobilinogen,Urine Normal (Normal)
[2022-03-20 11:08] LABS: Alanine Aminotransferase 64 Units/L (7-52); Albumin 2.6 g/dL (3.5-5.7); Albumin/Globulin Ratio 0.7 (1.1-2.2); Alkaline Phosphatase 198 Units/L (34-104); Aspartate Amino Transferase 44 Units/L (13-39); BUN/Creatinine Ratio 16 (6-26); Bilirubin,Total 0.4 mg/dL (0.3-1.0); Blood Urea Nitrogen 20 mg/dL (6-20); Calcium 9.1 mg/dL (8.6-10.3); Carbon Dioxide 25 mEq/L (23-29); Chloride 98 mEq/L (98-107); Globulin 3.8 g/dL (2.4-3.5); Glucose 522 mg/dL (70-105); Osmolality,Calculated 302 (280-300); Potassium 3.7 mEq/L (3.5-5.1); Sodium 133 mEq/L (136-145); Total Protein 6.4 g/dL (6.4-8.9); eGFR For African Americans > 60 (> 60); eGFR For Non-African Americans 51 (> 60)
[2022-03-20] MEDS ORDERED: Insulin Regular, Human 100 UNIT/ML IV ONE (11:22)
[2022-03-20] MEDS ORDERED: D5% in 0.45% NACL 1,000 ML IVC PRN (11:50)
[2022-03-20] MEDS ORDERED: D5% in 0.45% NACL w KCl 20 MEQ/1,000 ML MLS IVC PRN (11:50)
[2022-03-20] MEDS ORDERED: *HR* Dextrose 50 % in Water (Syg) 50 ML SYRINGE IVP PRN (11:50)
[2022-03-20] MEDS ORDERED: 0.9 % Sodium Chloride 1,000 ML IVC SCH ×2 (12:00→12:15)
[2022-03-20] MEDS ORDERED: 0.45 % Sodium Chloride w/KCl 20 MEQ/1,000 ML MLS IVC SCH ×3 (12:00→14:15)
[2022-03-20] MEDS ORDERED: Ondansetron 4 MG/2 ML VIAL IVP PRN (12:00)
[2022-03-20 13:46] LABS: VBG HCO3 22 mEq/L (21-27); VBG PCO2 38 mmHg (41-51); VBG PH 7.36 pH Units (7.32-7.42); VBG PO2 66 mmHg (25-50)
[2022-03-20 14:02] LABS: BUN/Creatinine Ratio 17 (6-26); Blood Urea Nitrogen 19 mg/dL (6-20); Calcium 8.8 mg/dL (8.6-10.3); Carbon Dioxide 23 mEq/L (23-29); Chloride 101 mEq/L (98-107); Glucose 439 mg/dL (70-105); Magnesium 2.2 mg/dL (1.6-2.6); Osmolality,Calculated 295 (280-300); Phosphorous 2.9 mg/dL (2.7-4.5); Potassium 3.8 mEq/L (3.5-5.1); Sodium 132 mEq/L (136-145); eGFR For African Americans > 60 (> 60); eGFR For Non-African Americans 60 (> 60)
[2022-03-20] MEDS ORDERED: Insulin DETEMIR 100 UNIT/ML X5UNITS SUBQ ONE (14:10)
[2022-03-20] MEDS ORDERED: D5% in Water 1,000 ML IVC PRN (14:12)
[2022-03-20] MEDS ORDERED: Dextrose Gel 15 GM/37.5 ML TUBE PO PRN ×3 (14:12→20:43)
[2022-03-20] MEDS ORDERED: Insulin LISPRO 300 UNITS/3 ML VIAL SUBQ SCH ×3 (16:30→21:00)
[2022-03-20 17:41] LABS: BUN/Creatinine Ratio 16 (6-26); Blood Urea Nitrogen 18 mg/dL (6-20); Calcium 8.5 mg/dL (8.6-10.3); Carbon Dioxide 26 mEq/L (23-29); Chloride 99 mEq/L (98-107); Glucose 441 mg/dL (70-105); Osmolality,Calculated 293 (280-300); Potassium 3.7 mEq/L (3.5-5.1); Sodium 131 mEq/L (136-145); eGFR For African Americans > 60 (> 60); eGFR For Non-African Americans 59 (> 60)
[2022-03-20 18:58] LABS: Estimated Average Glucose 456 mg/dl; Hemoglobin A1C 17.5 %
[2022-03-20] MEDS ORDERED: Insulin DETEMIR 100 UNIT/ML X5UNITS SUBQ SCH (21:00)
[2022-03-20 21:18] VITALS: BP 124/85; PULSE 115; TEMP 98.3; O2SAT 99
[2022-03-20 21:38] LABS: BUN/Creatinine Ratio 17 (6-26); Blood Urea Nitrogen 21 mg/dL (6-20); Calcium 8.1 mg/dL (8.6-10.3); Carbon Dioxide 24 mEq/L (23-29); Chloride 99 mEq/L (98-107); Glucose 490 mg/dL (70-105); Osmolality,Calculated 291 (280-300); Potassium 4.2 mEq/L (3.5-5.1); Sodium 128 mEq/L (136-145); eGFR For African Americans > 60 (> 60); eGFR For Non-African Americans 51 (> 60)
[2022-03-21] MEDS ORDERED: Pantoprazole 40 MG VIAL IVP SCH (09:00)
== END 2022-03-20 21:34 | disposition home or self-care (01) ==
LOC: 2NNU 08:44 → EMEROOARM 08:44 → SUATTDRO 11:57 → 2NNU 14:50 → 2ANU 21:08
PROVIDERS: ADMIT Internal Medicine; ATTEND Internal Medicine